=== PATIENT | female | born 1980 | race Caucasian/White ===

== ENCOUNTER 2017-02-07 10:10 | Day surgery (SDC) | payer MEDICARE, OTHER ==
[2017-02-05 14:58] VITALS: BMI 34.7
[~2017-02-07 10:10] MED LIST: LACTATED RINGERS 1,000 ML IV SCH
[2017-02-07 10:58] VITALS: TEMP 98.3
[2017-02-07] MEDS ORDERED: LIDOCAINE 1% 20 ML VIAL (10MG/ML) FOR IV START INTRADERMA ONE (11:07)
[2017-02-07] MEDS ORDERED: LIDOCAINE 1% INJ 10MG/ML (20 ML MDV) ONE (11:19)
[2017-02-07] MEDS ORDERED: PROPOFOL 10 MG/ML 20 ML VIAL IV ONE (11:19)
--- NOTE | 2017-02-07 11:32 | P.PCN ---
Date of Procedure: 02/07/17 Procedure(s) Performed: BRIEF HISTORY: Patient is a 36-year-old, pleasant, white female, scheduled for an upper endoscopy as a part of evaluation of persistent nausea vomiting for the last 2 years duration. She was diagnosed with idiopathic gastroparesis about 20 years ago and since then has been maintained on Prilosec 20 mg twice daily and was doing reasonably well. However in the last 2 years she is been having progressively worsening symptoms with epigastric discomfort, early satiety and intermittent nausea vomiting. She is hence scheduled for an upper endoscopy to evaluate. PROCEDURE PERFORMED: Esophagogastroduodenoscopy and biopsy. PREOPERATIVE DIAGNOSIS: Intermittent nausea and vomiting of 2 years duration. IV sedation per anesthesia. PROCEDURE: After informed consent was obtained, the patient was brought into the endoscopy unit. IV sedation was administered by Anesthesia under continuous monitoring. Initially the Olympus GIF-140 video endoscope was inserted into the mouth. Esophagus intubated without any difficulty. It was gradually advanced into the stomach and duodenum and carefully examined. The bulb and the second part of the duodenum appeared normal. The scope at this time was withdrawn to the stomach, adequately insufflated with air, and upon careful examination, mucosa of the antrum, had mild gastritis and biopsies were done from this area. The body, cardia and the fundus appeared normal. There was small to moderate of retained solid food noted in the stomach suggestive of gastroparesis. The scope was then withdrawn into the esophagus. The GE junction was located at 39 cm from the incisors. There were 2 linear erosions consistent with LA grade B reflux esophagitis. The rest of the esophagus appeared varinder and the patient tolerated the procedure well. IMPRESSION: 1. Retained food in the stomach suggestive of idiopathic gastroparesis. 2. Linear erosions in the esophagus consistent with LA grade B reflux esophagitis. RECOMMENDATIONS: The findings of this examination were discussed with the patient as well as a family. She was advised to continue with omeprazole 20 mg twice daily half hour before breakfast and dinner and add Zantac 150 mg at bedtime. She was advised to be on small frequent meals. If she still remains symptomatic can be offered a prokinetic agent for symptomatic improvement.
[2017-02-07 11:55] VITALS: BP 116/79; PULSE 78; RESP 16
== END 2017-02-07 12:32 | disposition home or self-care (01) ==
LOC: ORWHC2ENDO 10:10
PROVIDERS: ATTEND Internal Medicine Gastroenterology
DX: K29.50 Unspecified chronic gastritis without bleeding (principal); K21.0 Gastro-esophageal reflux disease with esophagitis; K22.10 Ulcer of esophagus without bleeding; F17.200 Nicotine dependence, unspecified, uncomplicated; F41.9 Anxiety disorder, unspecified; Z79.899 Other long term (current) drug therapy
CPT/HCPCS: 81025; 88305; 88342; 43239; J2001; J2704

== ENCOUNTER → 2018-04-08 | Outpatient (CLI) | payer MEDICARE, OTHER ==
[2018-04-08 17:39] LABS: Vitamin D 25 Hydroxy 13.1 ng/mL (30.0-100.0)
[2018-04-08 17:51] LABS: ALT <8 U/L (8-44); AST 11 U/L (13-35); Albumin/Globulin Ratio 2.18 (1.20-2.10); Alkaline Phosphatase 64 U/L (41-126); Calcium 8.9 mg/dL (8.7-10.3); Carbon Dioxide 20.9 mmol/L (21.6-31.8); Chloride 105 mmol/L (96-109); Globulin 1.7 g/dL (2.1-3.7); Glucose 145 mg/dL (70-110); Potassium 3.8 mmol/L (3.5-5.5); Sodium 137 mmol/L (135-145); Total Bilirubin 0.2 mg/dL (0.3-1.2); Total Protein 5.4 g/dL (6.2-8.2)
[2018-04-08 20:05] LABS: Hemoglobin A1C 5.3 % (4.0-6.0)
== END ==
LOC: LABWHC1 07:12
PROVIDERS: ATTEND Internal Medicine Interventional Cardiology
DX: O99.419 Diseases of the circulatory system complicating pregnancy, unspecified trimester (principal); R00.0 Tachycardia, unspecified; Z33.1 Pregnant state, incidental; Z3A.00 Weeks of gestation of pregnancy not specified
CPT/HCPCS: 36415; 80053; 82306; 82607; 82950; 83036; 84443

== ENCOUNTER → 2018-04-15 | Outpatient (CLI) | payer MEDICARE, OTHER ==
[2018-04-15 12:06] LABS: Glucose 3 Hour, Gest 159 mg/dL
== END | disposition home or self-care (01) ==
LOC: LABWHC1 07:28
PROVIDERS: ATTEND Obstetrics & Gynecology
DX: O99.810 Abnormal glucose complicating pregnancy (principal); Z3A.00 Weeks of gestation of pregnancy not specified
CPT/HCPCS: 36415; 82951; 82952

== ENCOUNTER 2019-11-14 01:32 | Emergency (ER) | payer MEDICARE, OTHER ==
[2019-11-14 01:38] VITALS: BP 157/83; PULSE 103; RESP 20; TEMP 98.2
--- NOTE | 2019-11-14 01:51 | ED ---
General Adult HPI - General Chief complaint: Extremity Injury, Lower Stated complaint: Ankle injury Time Seen by Provider: 11/14/19 01:45 Source: patient, family Mode of arrival: ambulatory Limitations: no limitations - History of Present Illness Initial comments: Dictation was produced using [employer] dictation software. please excuse any grammatical, word or spelling errors. This patient was cared for during a federal and state declared state of emergency secondary to Covid 19 Chief Complaint: 39-year-old female presents with ankle pain. History of Present Illness: Patient is 39-year-old female patient states she tripped on her flip-flop and fell forward. Patient states she inverted her right ankle causing her pain. Patient's friend is an ER nurse and she was encouraged to come to the emergency department. He complains of pain whenever she bears weight. Denies any midfoot tenderness. Denies any numbness and paresthesias. Patient complains of pain over the posterior portion of the lateral malleolus. The ROS documented in this emergency department record has been reviewed and confirmed by me. Those systems with pertinent positive or negative responses have been documented in the HPI. All other systems are other negative and/or noncontributory. PHYSICAL EXAM: General Impression: Alert and oriented x3, not in acute distress HEENT: Normocephalic atraumatic, extra-ocular movements intact, pupils equal and reactive to light bilaterally, mucous membranes moist. Cardiovascular: Heart regular rate and rhythm Chest: Able to complete full sentences, no retractions, no tachypnea Abdomen: abdomen soft, non-tender, non-distended, no organomegaly Musculoskeletal: Pulses present and equal in all extremities, no peripheral edema Motor: no focal deficits noted Neurological: CN II-XII grossly intact, no focal motor or sensory deficits noted Skin: Intact with no visualized rashes Psych: Normal affect and mood Right ankle: Mild swelling to the inferior portion of the lateral malleolus. No midfoot tenderness ED course: 39-year-old feel presents with right ankle pain after inversion injury. Lens upon arrival are within acceptable limits.X-ray shows no acute processes. Clinical presentation consistent with ankle sprain. Patient's weightbearing as tolerated. - Related Data Home Medications Medication Instructions Recorded Confirmed ALPRAZolam [Xanax] 2 mg PO DAILY PRN 09/02/13 02/07/17 Omeprazole [PriLOSEC] 20 mg PO BID 09/02/13 02/07/17 Albuterol Nebulized [Ventolin 2.5 mg INHALATION Q4H PRN 02/05/17 02/07/17 Nebulized] Amitriptyline HCl [Elavil] 100 mg PO HS 02/05/17 02/07/17 Dextroamphetamine/Amphetamine 20 mg PO BID PRN 02/05/17 02/07/17 [Adderall] Ibuprofen [Advil] 400 mg PO Q6HR PRN 02/05/17 02/07/17 Vortioxetine Hydrobromide 20 mg PO DAILY 02/05/17 02/07/17 [Trintellix] Allergies Allergy/AdvReac Type Severity Reaction Status Date / Time No Known Allergies Allergy Verified 11/14/19 01:38 Review of Systems ROS Statement: Those systems with pertinent positive or pertinent negative responses have been documented in the HPI. ROS Other: All systems not noted in ROS Statement are negative. Past Medical History Past Medical History: Fibromyalgia, GERD/Reflux, Rheumatoid Arthritis (RA), Thyroid Disorder Additional Past Medical History / Comment(s): BULGING DISCS, DDD. NARCOLEPSY. HYROID NODULES, GOITER-thyroid nodules, injury to back recently, chronic bronchitis, IBS, gastroparesis, has choking with drinking fluid and vomiting- causes pain, History of Any Multi-Drug Resistant Organisms: None Reported Additional Past Surgical History / Comment(s): COLONOSCOPY/EGD. LAPAROSCOPY, pain clinic spinal injections Past Anesthesia/Blood Transfusion Reactions: Previous Problems w/ Anesthesia, Family History of Problems w/ Anesthesia, Motion Sickness Additional Past Anesthesia/Blood Transfusion Reaction / Comment(s): REQUIRES EXTRA ANESTHESIA; MOTHER DOES ALSO. Past Psychological History: Anxiety, Panic Disorder Smoking Status: Current every day smoker Past Alcohol Use History: Occasional Past Drug Use History: None Reported - Past Family History Mother Family Medical History: Pulmonary Embolus General Exam Limitations: no limitations Course Vital Signs 11/14/19 01:34 Temperature 98.2 F Pulse Rate 103 H Respiratory 20 Rate Blood Pressure 157/83 O2 Sat by Pulse 98 Oximetry Disposition Clinical Impression: Ankle sprain Disposition: HOME SELF-CARE Condition: Good Instructions (If sedation given, give patient instructions): Ankle Sprain (ED) Is patient prescribed a controlled substance at d/c from ED?: No Referrals: SouLino hoyos DO [Primary Care Provider] - 1-2 days Time of Disposition: 02:10
--- NOTE | 2019-11-14 02:02 | XR ---
EXAMINATION TYPE: XR ankle complete RT DATE OF EXAM: 11/14/2019 COMPARISON: NONE HISTORY: Pain. Twisted ankle. TECHNIQUE: 3 views FINDINGS: Ankle mortise is anatomic. I see no fracture nor dislocation. There is soft tissue swelling over the lateral malleolus. There is an Achilles calcaneal spur. IMPRESSION: Soft tissue swelling. No fracture seen.
== END 2019-11-14 02:24 | disposition home or self-care (01) ==
LOC: EC 01:32
DX: S93.401A Sprain of unspecified ligament of right ankle, initial encounter (principal); M79.7 Fibromyalgia; F41.0 Panic disorder [episodic paroxysmal anxiety]; K21.9 Gastro-esophageal reflux disease without esophagitis; M06.9 Rheumatoid arthritis, unspecified; G47.419 Narcolepsy without cataplexy; K58.9 Irritable bowel syndrome, unspecified; F17.200 Nicotine dependence, unspecified, uncomplicated; Z87.19 Personal history of other diseases of the digestive system; Z79.899 Other long term (current) drug therapy; W01.0XXA Fall on same level from slipping, tripping and stumbling without subsequent striking against object, initial encounter
CPT/HCPCS: 99283

== ENCOUNTER 2023-04-09 19:07 | Inpatient (IN) | payer MEDICARE, OTHER ==
[2023-04-09] MEDS ORDERED: methylPREDNISolone SOD SUCCI 125 MG/2 ML VIAL IV ONE (19:44)
[2023-04-09] MEDS ORDERED: ACETAMINOPHEN TAB 325 MG TAB PO STA (19:44)
[2023-04-09] MEDS ORDERED: IPRATROPIUM-ALBUTEROL 3 ML NEB INHALATION STA ×3 (19:44→22:00)
[2023-04-09] MEDS ORDERED: IBUPROFEN 600 MG TAB PO STA (19:44)
[2023-04-09] MEDS ORDERED: SODIUM CHLORIDE 0.9% 1,000 ML IV ONE (19:47)
--- NOTE | 2023-04-09 21:14 | ED ---
Fever HPI - General Chief Complaint: Fever Stated Complaint: SAMI Time Seen by Provider: 04/09/23 19:24 Source: patient Mode of arrival: ambulatory Limitations: no limitations - History of Present Illness Initial Comments: 43-year-old female presenting with chief complaint of shortness of breath. Patient has been experiencing a cough and fever since yesterday. She was seen at urgent care and was diagnosed with bronchitis and ear infection, she is curr ently on doxycycline. Patient states that she started having the chills this evening and after taking her breathing treatment and codeine cough syrup was continuing to feel short of breath which prompted her to report to ER. She denies any chest pain or tightness. Admits to diarrhea, no nausea or vomiting. - Related Data Home Medications Medication Instructions Recorded Confirmed ALPRAZolam [Xanax] 2 mg PO BID PRN 09/02/13 04/09/23 Omeprazole [PriLOSEC] 20 mg PO BID 09/02/13 04/09/23 Albuterol Nebulized [Ventolin 2.5 mg INHALATION RT-Q4H PRN 02/05/17 04/09/23 Nebulized] Albuterol Inhaler [Ventolin Hfa 2 puff INHALATION RT-Q6H PRN 04/09/23 04/09/23 Inhaler] Doxycycline Hyclate 100 mg PO BID 04/09/23 04/09/23 Promethazine/Dextromethorphan 5 ml PO Q4HR PRN 04/09/23 04/09/23 [Promethazine-Dm 6.25-15 mg/5Ml] Sertraline [Zoloft] 150 mg PO DAILY 04/09/23 04/09/23 predniSONE 50 mg PO DAILY 04/09/23 04/09/23 Allergies Allergy/AdvReac Type Severity Reaction Status Date / Time No Known Allergies Allergy Verified 04/09/23 21:51 Review of Systems ROS Statement: Those systems with pertinent positive or pertinent negative responses have been documented in the HPI. ROS Other: All systems not noted in ROS Statement are negative. Past Medical History Past Medical History: Fibromyalgia, GERD/Reflux, Rheumatoid Arthritis (RA), Thyroid Disorder Additional Past Medical History / Comment(s): BULGING DISCS, DDD. NARCOLEPSY. HYROID NODULES, GOITER-thyroid nodules, injury to back recently, chronic bronchitis, IBS, gastroparesis, has choking with drinking fluid and vomiting- causes pain, History of Any Multi-Drug Resistant Organisms: None Reported Additional Past Surgical History / Comment(s): COLONOSCOPY/EGD. LAPAROSCOPY, pain clinic spinal injections Past Anesthesia/Blood Transfusion Reactions: Previous Problems w/ Anesthesia, Family History of Problems w/ Anesthesia, Motion Sickness Additional Past Anesthesia/Blood Transfusion Reaction / Comment(s): REQUIRES EXTRA ANESTHESIA; MOTHER DOES ALSO. Past Psychological History: Anxiety, Panic Disorder Smoking Status: Current every day smoker Past Alcohol Use History: Occasional Past Drug Use History: None Reported - Past Family History Mother Family Medical History: Pulmonary Embolus General Exam Limitations: no limitations General appearance: alert, in no apparent distress Head exam: Present: atraumatic, normocephalic, normal inspection Eye exam: Present: normal appearance, EOMI ENT exam: Present: normal exam, normal oropharynx, mucous membranes moist, TM's normal bilaterally Neck exam: Present: normal inspection Respiratory exam: Present: wheezes. Absent: rales, rhonchi, stridor Cardiovascular Exam: Present: regular rate, normal rhythm, normal heart sounds. Absent: systolic murmur, diastolic murmur, rubs, gallop, clicks Neurological exam: Present: alert, oriented X3 Psychiatric exam: Present: normal affect, normal mood Skin exam: Present: warm, dry, intact, normal color. Absent: rash Course Vital Signs 04/09/23 04/09/23 04/09/23 19:17 20:36 20:49 Temperature 100.9 F H Pulse Rate 101 H 88 84 Respiratory 22 Rate Blood Pressure 129/69 O2 Sat by Pulse 95 Oximetry 04/09/23 04/09/23 04/09/23 20:56 22:07 22:11 Temperature 98.7 F 99.0 F Pulse Rate 102 H 84 Respiratory 18 Rate Blood Pressure 111/69 O2 Sat by Pulse 94 L Oximetry 04/09/23 04/09/23 22:39 22:40 Temperature Pulse Rate 105 H 100 Respiratory 20 Rate Blood Pressure 143/80 O2 Sat by Pulse 94 L Oximetry Medical Decision Making - Medical Decision Making Was pt. sent in by a medical professional or institution (, PA, MANAGER CANCER, urgent care, hospital, or detention...) When possible be specific @ -No Did you speak to anyone other than the patient for history (EMS, parent, family, police, friend...)? What history was obtained from this source @ -No Did you review nursing and triage notes (agree or disagree)? Why? @ -I reviewed and agree with nursing and triage notes Were old charts reviewed (outside hosp., previous admission, EMS record, old EKG, old radiological studies, urgent care reports/EKG's, detention records)? Report findings @ -No old charts were reviewed Differential Diagnosis (chest pain, altered mental status, abdominal pain women, abdominal pain men, vaginal bleeding, weakness, fever, dyspnea, syncope, headache, dizziness, GI bleed, back pain, seizure, CVA, palpatations, mental health, musculoskeletal)? @ -Differential includes pneumonia, bronchitis, asthma, COPD, pneumothorax, CHF, this is not an all inclusive list EKG interpreted by me (3pts min.). @ -Sinus rhythm ventricular rate 94. CT interval 184. QRS 106. QT 355. QTc 407. X-rays interpreted by me (1pt min.). @ -Chest x-ray shows mild bibasilar atelectasis otherwise no acute abnormality CT interpreted by me (1pt min.). @ -None done U/S interpreted by me (1pt. min.). @ -None done What testing was considered but not performed or refused? (CT, X-rays, U/S, labs)? Why? @ -None What meds were considered but not given or refused? Why? @ -None Did you discuss the management of the patient with other professionals (professionals i.e. , PA, MANAGER CANCER, lab, RT, psych nurse, rn social work, divorce lawyer, teacher, court registry officer, child welfare caseworker)? Give summary @ -my attending spoke with the [facility] hospitalist group provider on-call who accepted admission Was smoking cessation discussed for >3mins.? @ -No Was critical care preformed (if so, how long)? @ -No Were there social determinants of health that impacted care today? How? (Homelessness, low income, unemployed, alcoholism, drug addiction, transportation, low edu. Level, literacy, decrease access to med. care, senior living, rehab)? @ -No Was there de-escalation of care discussed even if they declined (Discuss DNR or withdrawal of care, Hospice)? DNR status @ -No What co-morbidities impacted this encounter? (DM, HTN, Smoking, COPD, CAD, Cancer, CVA, ARF, Chemo, Hep., AIDS, mental health diagnosis, sleep apnea, morbid obesity)? @ -None Was patient admitted / discharged? Hospital course, mention meds given and route, prescriptions, significant lab abnormalities, going to OR and other pertinent info. @ -43-year-old female presenting with chief complaint of fever and shortness of breath. History and physical examination are conducted. Diffuse inspiratory and expiratory wheezes are heard on auscultation. Patient is given Solu-Medrol 125 mg and 3 DuoNeb breathing treatments. She is negative for influenza, RSV, Covid. Chest x-ray is negative for consolidation. Patient was febrile upon arrival, she is given Motrin and Tylenol. On reassessment patient continues to complain of shortness of breath and diffuse wheezes are still heard on auscultation. Patient maintains a saturation of 93% on room air. Given the patient's persistent wheezing she will be admitted for reactive airway disease, we will treat empirically with azithromycin. CBC and CMP are ordered. EKG is ordered and reviewed, no acute findings. Patient is agreeable with this plan. I discussed this case with my attending Dr. Bowser Undiagnosed new problem with uncertain prognosis? @ -No Drug Therapy requiring intensive monitoring for toxicity (Heparin, Nitro, Insulin, Cardizem)? @ -No Were any procedures done? @ -No Diagnosis/symptom? @ -Reactive airway disease Acute, or Chronic, or Acute on Chronic? @ -acute Uncomplicated (without systemic symptoms) or Complicated (systemic symptoms)? @ -complicated Side effects of treatment? @ -No Exacerbation, Progression, or Severe Exacerbation? @ -No Poses a threat to life or bodily function? How? (Chest pain, [place], [place], pneumonia, PE, COPD, DKA, ARF, appy, cholecystitis, CVA, Diverticulitis, Homicidal, Suicid al, threat to staff... and all critical care pts) @ -Yes - Lab Data Result diagrams: 04/09/23 23:48 Lab Results 04/09/23 04/09/23 Range/Units 20:08 22:08 POC Glucose (mg/dL) 135 H (70-110) mg/dL POC Glu Inventory Taker ID Tammy Mccartney Influenza Type A (PCR) Not Detected (Not Detectd) Influenza Type B (PCR) Not Detected (Not Detectd) RSV (PCR) Not Detected (Not Detectd) SARS-CoV-2 (PCR) Not Detected (Not Detectd) Disposition Clinical Impression: Reactive airway disease Disposition: ADMITTED IP TO THIS HOSP Condition: Fair Time of Disposition: 23:38
--- NOTE | 2023-04-09 21:44 | XR ---
EXAMINATION TYPE: XR chest 2V DATE OF EXAM: 04/09/2023 8:13 PM CLINICAL INDICATION:Female, 43 years old with history of fever, cough; [facility] COMPARISON: 08/08/2014 TECHNIQUE: XR chest 2V. Frontal PA and lateral views of the chest. FINDINGS: Exam is limited by patient body habitus. Lines/Tubes: None. Heart/mediastinum: Cardiomediastinal silhouette is well defined. Heart size upper normal. The aorta appears tortuous, a finding usually associated with either atherosclerosis or systemic hypertension. Pulmonary vascularity: Not increased, Lungs/Pleura: There is no evidence of pleural effusion, focal consolidation, or pneumothorax. Mild b ibasilar stranding suggesting subsegmental atelectasis. Musculoskeletal: No acute osseous abnormality demonstrated in the limits of the exam. Mild degenerati ve changes. Other findings: None. IMPRESSION: Mild bibasilar atelectasis, otherwise no acute abnormality.
[2023-04-09 22:09] LABS: Glucose,Whole Blood 135 mg/dL (70-110)
[2023-04-09] MEDS ORDERED: ALPRAZolam 1 MG TAB PO STA (23:07)
[2023-04-09] MEDS ORDERED: IBUPROFEN 400 MG TAB PO PRN (23:45)
[2023-04-09] MEDS ORDERED: NALOXONE 0.4 MG/ML 1 ML VIAL IV PRN (23:45)
[2023-04-09] MEDS: SODIUM CHLORIDE 0.9% 1,000 ML IV SCH (23:47)
[2023-04-09] MEDS ORDERED: diphenhydrAMINE ELIXIR 25 MG/10 ML CUP PO PRN (23:47)
[2023-04-10 00:04] LABS: Basophils % (A) 0 %; Eosinophils % (A) 0 %; HGB 12.4 gm/dL (11.4-16.0); Lymphocytes # (A) 0.8 k/uL (1.0-4.8); Lymphocytes % (A) 10 %; MCH 30.7 pg (25.0-35.0); MCHC 33.6 g/dL (31.0-37.0); MCV 91.4 fL (80.0-100.0); Mean Platelet Volume 7.3; Monocytes # (A) 0.2 k/uL (0-1.0); Monocytes % (A) 2 %; Neutrophils # (A) 7.1 k/uL (1.3-7.7); Neutrophils % (A) 86 %; Platelet Count 273 k/uL (150-450); RBC 4.05 m/uL (3.80-5.40); RDW 13.2 % (11.5-15.5); WBC 8.3 k/uL (3.8-10.6)
[2023-04-10] MEDS ORDERED: AZITHROMYCIN 500 MG in SODIUM CHLORIDE 0.9% 250 ML IVPB STA (00:39)
[2023-04-10 00:56] LABS: ALT 29 U/L (4-34); AST 31 U/L (14-36); African American GFR (CKD) >90 (>60 ml/min/1.73 sqM); Albumin 4.1 g/dL (3.5-5.0); Alkaline Phosphatase 86 U/L (38-126); Anion Gap 15 mmol/L; Blood Urea Nitrogen 8 mg/dL (7-17); Calcium 8.5 mg/dL (8.4-10.2); Carbon Dioxide 18 mmol/L (22-30); Chloride 104 mmol/L (98-107); Glucose 216 mg/dL (74-99); Non-African American GFR(CKD) 87 (>60 ml/min/1.73 sqM); Sodium 137 mmol/L (137-145); Total Bilirubin 0.4 mg/dL (0.2-1.3); Total Protein 6.8 g/dL (6.3-8.2)
--- NOTE | 2023-04-10 01:15 | P.CNPUL ---
History of Present Illness Consult date: 04/10/23 Requesting physician: Kimberly Khalil Reason for consult: dyspnea, cough Chief complaint: Shortness of breath and fever History of present illness: I am seeing this patient in new consultation today 04/10/2023 in the emergency room after she presented with chief complaint of shortness of breath, cough, fever over the last 2 days. Patient is a 43-year-old white female with past medical history significant for chronic bronchitis, chronic ongoing tobacco dependence, GERD, gastroparesis, rheumatoid arthritis, anxiety, among other things. Her primary care provider is Dr. Snow. Patient states that she has "seasonal bronchitis". She smokes approximately one quarter pack per day, down from 1 pack per day previously. She states that she has quit multiple times in the past, but has restarted within the last year. She states that Chantix has worked best in the past. She reportedly tested positive for COVID-19 back in February of this year. Since then, she has had multiple bouts of bronchitis- like symptoms. She's had shortness of breath, dry cough, intermittent fever, wheezing, and chest tightness. She states that she did have a nebulizer at home but did not have any medication for it. She has a when necessary albuterol rescue inhaler which she has been using frequently. She's been treated on 2 separate occasions at urgent care clinic with steroids and antibiotics. States that she initially improves, but worsens after she is tapered off her steroids. Her shortness of breath worsened over the last 2 days, and she came to the emergency room. She still has a dry persistent cough, and her chest is sore with coughing. She was febrile on arrival with a T-max of 100.9F. Chest x-ray did not show any acute infiltrates or evidence of pneumonia. She was negative for influenza, RSV, COVID-19. CBC was unremarkable. No leukocytosis. She is currently sitting up in bed, on room air. SpO2 is 95%. She is in no acute respiratory distress. She's had multiple DuoNeb treatments. She still has an end expiratory wheeze. Vital signs are stable. Review of Systems REVIEW OF SYSTEMS: CONSTITUTIONAL: Denies any recent significant weight loss or weight gain. EYES: Denies change in vision. EARS, NOSE, MOUTH, THROAT: Denies headaches, denies sore throat. CARDIOVASCULAR: Denies radiating chest pain, palpitations or syncopal episodes. RESPIRATORY: See HPI GASTROINTESTINAL: Denies change in appetite, abdominal pain, nausea and vomiting. Admits intermittent diarrhea after starting antibiotics. GENITOURINARY: Denies hematuria, denies infections. MUSKULOSKELETAL: Denies pain, denies swelling. INTEGUMENTARY: Denies rash, denies eczema. NEUROLOGICAL: Denies recent memory loss, no recent seizure activity. PSYCHIATRIC: Denies anxiety, denies depression. HEMATOLOGIC/LYMPHATIC: Denies anemia, denies enlarged lymph node Past Medical History Past Medical History: Fibromyalgia, GERD/Reflux, Rheumatoid Arthritis (RA), Thyroid Disorder Additional Past Medical History / Comment(s): BULGING DISCS, DDD. NARCOLEPSY. HYROID NODULES, GOITER-thyroid nodules, injury to back recently, chronic bronchitis, IBS, gastroparesis, has choking with drinking fluid and vomiting- causes pain, History of Any Multi-Drug Resistant Organisms: None Reported Additional Past Surgical History / Comment(s): COLONOSCOPY/EGD. LAPAROSCOPY, pain clinic spinal injections Past Anesthesia/Blood Transfusion Reactions: Previous Problems w/ Anesthesia, Family History of Problems w/ Anesthesia, Motion Sickness Additional Past Anesthesia/Blood Transfusion Reaction / Comment(s): REQUIRES EXTRA ANESTHESIA; MOTHER DOES ALSO. Past Psychological History: Anxiety, Panic Disorder Smoking Status: Current every day smoker Past Alcohol Use History: Occasional Past Drug Use History: None Reported - Past Family History Mother Family Medical History: Pulmonary Embolus Medications and Allergies Home Medications Medication Instructions Recorded Confirmed Type ALPRAZolam [Xanax] 2 mg PO BID PRN 09/02/13 04/09/23 History Omeprazole [PriLOSEC] 20 mg PO BID 09/02/13 04/09/23 History Albuterol Nebulized [Ventolin 2.5 mg INHALATION RT-Q4H PRN 02/05/17 04/09/23 History Nebulized] Albuterol Inhaler [Ventolin Hfa 2 puff INHALATION RT-Q6H PRN 04/09/23 04/09/23 History Inhaler] Doxycycline Hyclate 100 mg PO BID 04/09/23 04/09/23 History Promethazine/Dextromethorphan 5 ml PO Q4HR PRN 04/09/23 04/09/23 History [Promethazine-Dm 6.25-15 mg/5Ml] Sertraline [Zoloft] 150 mg PO DAILY 04/09/23 04/09/23 History predniSONE 50 mg PO DAILY 04/09/23 04/09/23 History Allergies Allergy/AdvReac Type Severity Reaction Status Date / Time No Known Allergies Allergy Verified 04/09/23 21:51 Physical Exam Vitals: Vital Signs Temp Pulse Resp BP Pulse Ox 04/09/23 22:40 100 04/09/23 22:39 105 H 20 143/80 94 L 04/09/23 22:11 99.0 F 04/09/23 22:07 84 04/09/23 20:56 98.7 F 102 H 18 111/69 94 L 04/09/23 20:49 84 04/09/23 20:36 88 04/09/23 19:17 100.9 F H 101 H 22 129/69 95 Intake and Output 04/09/23 04/09/23 04/10/23 14:59 22:59 06:59 Other: Weight 95.254 kg GENERAL EXAM: Alert, 43-year-old white female, comfortable in no apparent distress. HEAD: Normocephalic and atraumatic EYES: Normal reaction of pupils, equal size. NOSE: Clear with pink turbinates. THROAT: No erythema or exudates. NECK: No masses, no JVD. CHEST: No chest wall deformity. LUNGS: Equal air entry with end expiratory wheezes heard throughout. She has a persistent dry cough. On room air. No conversational dyspnea or accessory muscle use.. CVS: S1 and S2 normal with no audible murmur, regular rhythm. No extra heart sounds ABDOMEN: No hepatosplenomegaly, active bowel sounds, no guarding or rigidity. SPINE: No scoliosis or deformity SKIN: No rashes CENTRAL NERVOUS SYSTEM: No focal deficits, tone is normal in all 4 extremities. EXTREMITIES: There is no peripheral edema, clubbing, or cyanosis. Peripheral pulses are intact. Results - Laboratory Findings CBC and BMP: 04/09/23 23:48 Abnormal lab findings: Abnormal Labs 04/09/23 04/09/23 22:08 23:48 Lymphocytes # 0.8 L POC Glucose (mg/dL) 135 H - Diagnostic Findings Chest x-ray: image reviewed Assessment and Plan Assessment: Suspect acute bronchitis, chest x-ray shows no acute infiltrates or evidence of pneumonia. Negative for influenza, RSV, COVID-19. History of chronic bronchitis Chronic ongoing tobacco dependence History of GERD History of gastroparesis Gen. anxiety disorder Fibromyalgia Obesity, with a BMI of 38.4 kg/m Plan: Patient's medications, labs, chest x-ray reviewed On room air Continue DuoNeb's, add Robitussin-DM, and when necessary Tylenol Patient was empirically placed on antibiotics in the ER Smoking cessation encouraged. Nicotine replacement offered. Anticipate hospital discharge in the next 24-48 hours We will continue to follow I have personally seen and examined the patient, performed the documentation and the assessment and plan as written. Number of minutes spent on the visit:20 Time with Patient: Greater than 30
[2023-04-10] MEDS: guaiFENesin-DM 100-10MG/5ML 10 ML CUP PO PRN ×2 (01:56→11:22)
[2023-04-10 03:51] LABS: Potassium 3.3 mmol/L (3.5-5.1)
[2023-04-10] MEDS: IPRATROPIUM-ALBUTEROL 3 ML NEB INHALATION PRN (04:43)
[2023-04-10] MEDS: methylPREDNISolone SOD SUCCI 125 MG/2 ML VIAL IV SCH ×3 (06:33→20:28)
[2023-04-10] MEDS ORDERED: PANTOPRAZOLE 40 MG TABLET PO SCH (07:30)
[2023-04-10] MEDS: IPRATROPIUM-ALBUTEROL 3 ML NEB INHALATION SCH ×4 (08:24→19:43)
[2023-04-10] MEDS: PANTOPRAZOLE 40 MG TABLET PO SCH ×2 (09:03→17:49)
[2023-04-10] MEDS: SERTRALINE 50 MG TAB PO SCH (09:06)
[2023-04-10] MEDS: ACETAMINOPHEN TAB 325 MG TAB PO PRN (11:22)
[2023-04-10] MEDS: BUDESONIDE 1 MG/2 ML NEBU INHALATION SCH ×2 (11:26→19:43)
[2023-04-10] MEDS ORDERED: POTASSIUM CHLORIDE ER 20 MEQ TAB.ER PO STA (12:39)
--- NOTE | 2023-04-10 12:49 | P.HPIM ---
History of Present Illness Patient given with comments of shortness of breath does smoke half a pack of cigarettes a day trying to quit smoking. Patient does have history of seasonal bronchitis and seasonal asthma. Patient has been coughing unable to bring up anything chest x-ray did not show any pneumonia, patient is negative for COVID- 19, RSV and influenza. Patient does have leukocytosis. Patient was given steroids and antibiotic in urgent care clinic. Patient was having a dry cough with some chest tightness and wheezing. REVIEW OF SYSTEMS: CONSTITUTIONAL: No fever, no malaise, no fatigue. HEENT: No recent visual problems or hearing problems. Denied any sore throat. CARDIOVASCULAR: No chest pain, orthopnea, PND, no palpitations, no syncope. PULMONARY: no hemoptysis. GASTROINTESTINAL: No diarrhea, no nausea, no vomiting, no abdominal pain. NEUROLOGICAL: No headaches, no weakness, no numbness. HEMATOLOGICAL: Denies any bleeding or petechiae. GENITOURINARY: Denies any burning micturition, frequency, or urgency. MUSCULOSKELETAL/RHEUMATOLOGICAL: Denies any joint pain, swelling, or any muscle pain. ENDOCRINE: Denies any polyuria or polydipsia. The rest of the 14-point review of systems is negative. PHYSICAL EXAMINATION: GENERAL: The patient is alert and oriented x3, not in any acute distress. Obese with a BMI of 38.4 HEENT: Pupils are round and equally reacting to light. EOMI. No scleral icterus. No conjunctival pallor. Normocephalic, atraumatic. No pharyngeal erythema. No thyromegaly. CARDIOVASCULAR: S1 and S2 present. No murmurs, rubs, or gallops. PULMONARY: Expiratory wheezing on exam with some rhonchi ABDOMEN: Soft, nontender, nondistended, normoactive bowel sounds. No palpable organomegaly. MUSCULOSKELETAL: No joint swelling or deformity. EXTREMITIES: No cyanosis, clubbing, or pedal edema. NEUROLOGICAL: Gross neurological examination did not reveal any focal deficits. SKIN: No rashes. Assessment and plan -Bronchitis, possible COPD exacerbation: Patient is an antibody for pneumonia but no clear evidence of pneumonia patient has but atelectasis bilaterally will obtain pro-calcitonin level for now we'll continue with antibiotics continue systemic steroids. Next -Nicotine use: Counseling was provided patient did not smoke for last 3 days had multiple attempts of quitting smoking cessation Gastroesophageal reflux disease respiratory reflux disease --anxiety disorder -Fever secondary to bronchitis DVT prophylaxis: Early ablation Past Medical History Past Medical History: Fibromyalgia, GERD/Reflux, Rheumatoid Arthritis (RA), Thyroid Disorder Additional Past Medical History / Comment(s): BULGING DISCS, DDD. NARCOLEPSY. HYROID NODULES, GOITER-thyroid nodules, injury to back recently, chronic bronchitis, IBS, gastroparesis, has choking with drinking fluid and vomiting- causes pain, History of Any Multi-Drug Resistant Organisms: None Reported Additional Past Surgical History / Comment(s): COLONOSCOPY/EGD. LAPAROSCOPY, pain clinic spinal injections Past Anesthesia/Blood Transfusion Reactions: Previous Problems w/ Anesthesia, Family History of Problems w/ Anesthesia, Motion Sickness Additional Past Anesthesia/Blood Transfusion Reaction / Comment(s): REQUIRES EXTRA ANESTHESIA; MOTHER DOES ALSO. Past Psychological History: Anxiety, Panic Disorder Smoking Status: Current every day smoker Past Alcohol Use History: Occasional Past Drug Use History: None Reported - Past Family History Mother Family Medical History: Pulmonary Embolus Medications and Allergies Home Medications Medication Instructions Recorded Confirmed Type ALPRAZolam [Xanax] 2 mg PO BID PRN 09/02/13 04/09/23 History Omeprazole [PriLOSEC] 20 mg PO BID 09/02/13 04/09/23 History Albuterol Nebulized [Ventolin 2.5 mg INHALATION RT-Q4H PRN 02/05/17 04/09/23 History Nebulized] Albuterol Inhaler [Ventolin Hfa 2 puff INHALATION RT-Q6H PRN 04/09/23 04/09/23 History Inhaler] Doxycycline Hyclate 100 mg PO BID 04/09/23 04/09/23 History Promethazine/Dextromethorphan 5 ml PO Q4HR PRN 04/09/23 04/09/23 History [Promethazine-Dm 6.25-15 mg/5Ml] Sertraline [Zoloft] 150 mg PO DAILY 04/09/23 04/09/23 History predniSONE 50 mg PO DAILY 04/09/23 04/09/23 History Allergies Allergy/AdvReac Type Severity Reaction Status Date / Time No Known Allergies Allergy Verified 04/09/23 21:51 Physical Exam Vitals: Vital Signs Temp Pulse Resp BP Pulse Ox FiO2 04/10/23 11:43 94 04/10/23 11:28 94 04/10/23 11:26 95 18 134/76 95 04/10/23 09:00 98.0 F 71 18 134/76 98 04/10/23 08:27 95 2 04/10/23 05:30 98 22 122/85 95 04/10/23 04:56 94 04/10/23 04:45 80 04/10/23 03:21 20 04/10/23 01:10 98.4 F 104 H 22 117/68 98 04/09/23 22:40 100 04/09/23 22:39 105 H 20 143/80 94 L 04/09/23 22:11 99.0 F 04/09/23 22:07 84 04/09/23 20:56 98.7 F 102 H 18 111/69 94 L 04/09/23 20:49 84 04/09/23 20:36 88 04/09/23 19:17 100.9 F H 101 H 22 129/69 95 Intake and Output 04/09/23 04/10/23 04/10/23 22:59 06:59 14:59 Other: Weight 95.254 kg Results CBC & Chem 7: 04/09/23 23:48 04/09/23 23:48 Labs: Abnormal Lab Results - Last 24 Hours (Table) 04/09/23 04/09/23 04/09/23 Range/Units 22:08 23:48 23:48 Lymphocytes # 0.8 L (1.0-4.8) k/uL Potassium 3.3 L (3.5-5.1) mmol/L Carbon Dioxide 18 L (22-30) mmol/L Glucose 216 H (74-99) mg/dL POC Glucose (mg/dL) 135 H (70-110) mg/dL
[2023-04-10] MEDS: SODIUM CHLORIDE 0.9% 1,000 ML IV SCH (13:12)
[2023-04-10] MEDS: ALPRAZolam 1 MG TAB PO PRN (13:18)
[2023-04-10] MEDS: FORMOTEROL FUMARATE 20 MCG/2 ML NEBU INHALATION SCH (19:43)
[2023-04-11] MEDS: methylPREDNISolone SOD SUCCI 125 MG/2 ML VIAL IV SCH ×5 (00:22→23:42)
[2023-04-11] MEDS: ALPRAZolam 1 MG TAB PO PRN ×3 (01:31→23:42)
[2023-04-11] MEDS: IPRATROPIUM-ALBUTEROL 3 ML NEB INHALATION PRN (02:08)
[2023-04-11] MEDS: PANTOPRAZOLE 40 MG TABLET PO SCH ×2 (06:36→17:36)
[2023-04-11] MEDS: SODIUM CHLORIDE 0.9% 1,000 ML IV SCH ×2 (06:36→19:13)
[2023-04-11] MEDS: FORMOTEROL FUMARATE 20 MCG/2 ML NEBU INHALATION SCH ×2 (08:09→19:57)
[2023-04-11] MEDS: BUDESONIDE 1 MG/2 ML NEBU INHALATION SCH ×2 (08:09→19:57)
[2023-04-11] MEDS: IPRATROPIUM-ALBUTEROL 3 ML NEB INHALATION SCH ×4 (08:09→19:57)
[2023-04-11] MEDS ORDERED: FAMOTIDINE 20 MG TAB PO SCH (09:00)
[2023-04-11 09:05] LABS: BUN/Creat Ratio 13.12 Ratio (12.00-20.00); Blood Urea Nitrogen 10.5 mg/dL (9.0-27.0); Calcium 8.8 mg/dL (8.7-10.3); Chloride 108 mmol/L (96-109); Glucose 168 mg/dL (70-110); Potassium 4.4 mmol/L (3.5-5.5); Sodium 140 mmol/L (135-145)
[2023-04-11] MEDS: SERTRALINE 50 MG TAB PO SCH (09:35)
[2023-04-11] MEDS: ACETAMINOPHEN TAB 325 MG TAB PO PRN (12:56)
--- NOTE | 2023-04-11 12:56 | P.PN ---
Subjective Progress Note Date: 04/11/23 I am seeing this patient in new consultation today 04/10/2023 in the emergency room after she presented with chief complaint of shortness of breath, cough, fever over the last 2 days. Patient is a 43-year-old white female with past medical history significant for chronic bronchitis, chronic ongoing tobacco dependence, GERD, gastroparesis, rheumatoid arthritis, anxiety, among other things. Her primary care provider is Dr. Snow. Patient states that she has "seasonal bronchitis". She smokes approximately one quarter pack per day, down from 1 pack per day previously. She states that she has quit multiple times in the past, but has restarted within the last year. She states that Chantix has worked best in the past. She reportedly tested positive for COVID-19 back in February of this year. Since then, she has had multiple bouts of bronchitis- like symptoms. She's had shortness of breath, dry cough, intermittent fever, wheezing, and chest tightness. She states that she did have a nebulizer at home but did not have any medication for it. She has a when necessary albuterol rescue inhaler which she has been using frequently. She's been treated on 2 separate occasions at urgent care clinic with steroids and antibiotics. States that she initially improves, but worsens after she is tapered off her steroids. Her shortness of breath worsened over the last 2 days, and she came to the em ergency room. She still has a dry persistent cough, and her chest is sore with coughing. She was febrile on arrival with a T-max of 100.9F. Chest x-ray did not show any acute infiltrates or evidence of pneumonia. She was negative for influenza, RSV, COVID-19. CBC was unremarkable. No leukocytosis. She is currently sitting up in bed, on room air. SpO2 is 95%. She is in no acute respiratory distress. She's had multiple DuoNeb treatments. She still has an end expiratory wheeze. Vital signs are stable. The patient is seen today 04/11/2023 follow-up on the regular medical floor. She is awake and alert in no acute distress. She continues with a hoarse voice, dry nonproductive cough. Still somewhat bronchospastic and wheezing but better today compared to yesterday. Maintaining O2 saturations in the 90s on room air. Pro calcitonin was 0.07. Sodium 140. Potassium 4.4. Bicarb 21. BUN 11. Creatinine 0.8. Glucose 168. He is continued on Pulmicort and Perforomist, DuoNeb inhalations, Solu-Medrol. She is still having issues with acid reflux despite being on Protonix 40 mg twice a day. Objective - Vital Signs Vital signs: Vital Signs Temp 98.6 F 04/11/23 07:00 Pulse 92 04/11/23 12:07 Resp 16 04/11/23 07:00 BP 127/78 04/11/23 07:00 Pulse Ox 91 L 04/11/23 08:09 FiO2 21 04/11/23 08:09 Intake & Output 04/10/23 04/11/23 04/11/23 18:59 06:59 18:59 Intake Total 222 480 Balance 222 480 Intake: Oral 222 480 Other: # Voids 1 - Exam GENERAL EXAM: Alert, 43-year-old female, resting in bed, on room air, in no ap parent distress. HEAD: Normocephalic and atraumatic EYES: Normal reaction of pupils, equal size. NOSE: Clear with pink turbinates. THROAT: No erythema or exudates. NECK: No masses, no JVD. CHEST: No chest wall deformity. LUNGS: Equal air entry with end expiratory wheezes heard throughout. She has a persistent dry cough. CVS: S1 and S2 normal with no audible murmur, regular rhythm. No extra heart sounds ABDOMEN: No hepatosplenomegaly, active bowel sounds, no guarding or rigidity. SPINE: No scoliosis or deformity SKIN: No rashes CENTRAL NERVOUS SYSTEM: No focal deficits, tone is normal in all 4 extremities. EXTREMITIES: There is no peripheral edema, clubbing, or cyanosis. Peripheral pulses are intact. - Labs CBC & Chem 7: 04/09/23 23:48 04/11/23 04:59 Labs: Abnormal Lab Results - Last 24 Hours (Table) 04/11/23 Range/Units 04:59 Carbon Dioxide 21.0 L (21.6-31.8) mmol/L Glucose 168 H (70-110) mg/dL Assessment and Plan Assessment: Suspect acute bronchitis, chest x-ray shows no acute infiltrates or evidence of pneumonia. Negative for influenza, RSV, COVID-19. Pro-calcitonin negative. History of chronic bronchitis Chronic ongoing tobacco dependence History of GERD History of gastroparesis Gen. anxiety disorder Fibromyalgia Obesity, with a BMI of 38.4 kg/m Plan: The patient was seen and evaluated Stable and on room air Procalcitonin negative Improved but not quite back to her baseline Continue the current treatment plan Increase her activity as tolerated We will continue to follow I have personally seen and examined the patient, performed the documentation and the assessment and plan as written. Number of minutes spent on the visit: 10.
[2023-04-11] MEDS: MAG HYDROX/AL HYDROX/SIMETH 30 ML CUP PO SCH ×3 (12:58→21:02)
[2023-04-11] MEDS ORDERED: guaiFENesin SYRUP 100MG/5ML 200 MG/10 ML CUP PO PRN (13:57)
[2023-04-11] MEDS: BENZONATATE 100 MG CAP PO SCH ×2 (17:38→21:02)
--- NOTE | 2023-04-11 23:35 | P.PN ---
Subjective Progress Note Date: 04/11/23 Patient given with comments of shortness of breath does smoke half a pack of cigarettes a day trying to quit smoking. Patient does have history of seasonal bronchitis and seasonal asthma. Patient has been coughing unable to bring up anything chest x-ray did not show any pneumonia, patient is negative for COVID- 19, RSV and influenza. Patient does have leukocytosis. Patient was given steroids and antibiotic in urgent care clinic. Patient was having a dry cough with some chest tightness and wheezing 04/11/2023 Patient evaluated today resting in bed Continues with significant shortness of breath bronchospastic cough. Patient remains on high dose solumedrol IV. Remains on 2L of oxygen. Procalcitonin level 0.07 no need for antibiotics at this time. Patient states at this time her acid reflux is under control she is on regimen of protonix pepcid and maalox was added. Needs to follow up with GI who is not on staff until Friday. Review of Systems Constitutional: Denied any fatigue denied any fever. Cardio vascular: denied any chest pain, palpitations Gastrointestinal: denied any nausea, vomiting, diarrhea Pulmonary: Denied any shortness of breath cough Neurologic denied any new focal deficits All inpatient medications were reviewed and appropriate changes in these medications as dictated in the interval history and assessment and plan. PHYSICAL EXAMINATION: GENERAL: The patient is alert and oriented x3, not in any acute distress. Well developed, well nourished. HEENT: Pupils are round and equally reacting to light. EOMI. No scleral icterus. No conjunctival pallor. Normocephalic, atraumatic. No pharyngeal erythema. No thyromegaly. CARDIOVASCULAR: S1 and S2 present. No murmurs, rubs, or gallops. PULMONARY: Faint scattered wheezing ABDOMEN: Soft, nontender, nondistended, normoactive bowel sounds. No palpable organomegaly. MUSCULOSKELETAL: No joint swelling or deformity. EXTREMITIES: No cyanosis, clubbing, or pedal edema. NEUROLOGICAL: Gross neurological examination did not reveal any focal deficits. SKIN: No rashes. Assessment and plan -Bronchitis, possible COPD exacerbation: Procalcitonin level WNL no need for antibiotic therapy at this time. Patient continues on IV steroids and inhaled steroids, bronchodilators. -Nicotine use: Counseling was provided patient did not smoke for last 3 days had multiple attempts of quitting smoking cessation -Gastroesophageal reflux disease Continues on combination of protonix, pepcid and maalox and recommend follow up with GI does not need to be during this hospital stay. -Hx of narcolepsy -Hx of gastroparesis -anxiety disorder -Obesity -Fever secondary to bronchitis DVT prophylaxis: Early ablation The impression and plan of care has been dictated by Shivani Duarte, Nurse Practitioner as directed. Dr. Sai MD I have performed a history and physical examination and medical decision making of this patient, discussed the same with the dictator, and agree with the dictators assessment and plan as written, documented as a scribe. Based on total visit time, I have performed more than 50% of this visit. Objective - Vital Signs Vital signs: Vital Signs Temp 98.6 F 04/11/23 07:00 Pulse 92 04/11/23 12:07 Resp 16 04/11/23 07:00 BP 127/78 04/11/23 07:00 Pulse Ox 91 L 04/11/23 08:09 FiO2 21 04/11/23 08:09 Intake & Output 04/10/23 04/11/23 04/11/23 18:59 06:59 18:59 Intake Total 222 480 Balance 222 480 Intake: Oral 222 480 Other: # Voids 1 - Labs CBC & Chem 7: 04/09/23 23:48 04/11/23 04:59 Labs: Abnormal Lab Results - Last 24 Hours (Table) 04/11/23 Range/Units 04:59 Carbon Dioxide 21.0 L (21.6-31.8) mmol/L Glucose 168 H (70-110) mg/dL Assessment and Plan Time with Patient: Less than 30
[2023-04-12] MEDS: methylPREDNISolone SOD SUCCI 125 MG/2 ML VIAL IV SCH ×3 (06:03→17:47)
[2023-04-12] MEDS: SODIUM CHLORIDE 0.9% 1,000 ML IV SCH (06:03)
[2023-04-12] MEDS: PANTOPRAZOLE 40 MG TABLET PO SCH ×2 (06:03→16:34)
[2023-04-12] MEDS: IPRATROPIUM-ALBUTEROL 3 ML NEB INHALATION SCH ×4 (07:44→18:09)
[2023-04-12] MEDS: BUDESONIDE 1 MG/2 ML NEBU INHALATION SCH ×2 (07:45→18:13)
[2023-04-12] MEDS: FORMOTEROL FUMARATE 20 MCG/2 ML NEBU INHALATION SCH ×2 (07:45→18:13)
[2023-04-12] MEDS: SERTRALINE 50 MG TAB PO SCH (08:27)
[2023-04-12] MEDS: AZITHROMYCIN 500 MG TAB PO SCH (08:27)
[2023-04-12] MEDS: MAG HYDROX/AL HYDROX/SIMETH 30 ML CUP PO SCH ×4 (08:27→21:34)
[2023-04-12] MEDS: BENZONATATE 100 MG CAP PO SCH ×3 (08:27→21:34)
[2023-04-12] MEDS: ALPRAZolam 1 MG TAB PO PRN (08:32)
--- NOTE | 2023-04-12 11:34 | P.PN ---
Subjective Progress Note Date: 04/12/23 I am seeing this patient in new consultation today 04/10/2023 in the emergency room after she presented with chief complaint of shortness of breath, cough, fever over the last 2 days. Patient is a 43-year-old white female with past medical history significant for chronic bronchitis, chronic ongoing tobacco dependence, GERD, gastroparesis, rheumatoid arthritis, anxiety, among other things. Her primary care provider is Dr. Snow. Patient states that she has "seasonal bronchitis". She smokes approximately one quarter pack per day, down from 1 pack per day previously. She states that she has quit multiple times in the past, but has restarted within the last year. She states that Chantix has worked best in the past. She reportedly tested positive for COVID-19 back in February of this year. Since then, she has had multiple bouts of bronchitis- like symptoms. She's had shortness of breath, dry cough, intermittent fever, wheezing, and chest tightness. She states that she did have a nebulizer at home but did not have any medication for it. She has a when necessary albuterol rescue inhaler which she has been using frequently. She's been treated on 2 separate occasions at urgent care clinic with steroids and antibiotics. States that she initially improves, but worsens after she is tapered off her steroids. Her shortness of breath worsened over the last 2 days, and she came to the em ergency room. She still has a dry persistent cough, and her chest is sore with coughing. She was febrile on arrival with a T-max of 100.9F. Chest x-ray did not show any acute infiltrates or evidence of pneumonia. She was negative for influenza, RSV, COVID-19. CBC was unremarkable. No leukocytosis. She is currently sitting up in bed, on room air. SpO2 is 95%. She is in no acute respiratory distress. She's had multiple DuoNeb treatments. She still has an end expiratory wheeze. Vital signs are stable. The patient is seen today 04/11/2023 follow-up on the regular medical floor. She is awake and alert in no acute distress. She continues with a hoarse voice, dry nonproductive cough. Still somewhat bronchospastic and wheezing but better today compared to yesterday. Maintaining O2 saturations in the 90s on room air. Pro calcitonin was 0.07. Sodium 140. Potassium 4.4. Bicarb 21. BUN 11. Creatinine 0.8. Glucose 168. He is continued on Pulmicort and Perforomist, DuoNeb inhalations, Solu-Medrol. She is still having issues with acid reflux despite being on Protonix 40 mg twice a day. The patient is seen today 04/12/2023 in follow-up on the regular medical floor. She is sitting up in bed. Awake and alert in no acute distress. She continues with a dry productive cough. Sputum culture pending. She is maintaining O2 saturations in the 90s on room air. She's afebrile. Hemodynamically stable. She is continued on DuoNeb inhalations, Pulmicort and Perforomist inhalations, Solu-Medrol. Tessalon Perles and Robitussin for her cough. Remains on Protonix twice daily for her acid reflux. Objective - Vital Signs Vital signs: Vital Signs Temp 98.0 F 04/12/23 08:00 Pulse 90 04/12/23 08:07 Resp 16 04/12/23 08:00 BP 149/88 04/12/23 08:00 Pulse Ox 92 L 04/12/23 08:00 FiO2 21 04/11/23 08:09 Intake & Output 04/11/23 04/12/23 04/12/23 18:59 06:59 18:59 Intake Total 1196 Balance 1196 Intake: Oral 1196 Other: # Voids 3 2 - Exam GENERAL EXAM: Alert, anxious 43-year-old female, on room air, in no apparent distress. HEAD: Normocephalic and atraumatic EYES: Normal reaction of pupils, equal size. NOSE: Clear with pink turbinates. THROAT: No erythema or exudates. NECK: No masses, no JVD. CHEST: No chest wall deformity. LUNGS: Equal air entry with end expiratory wheezes heard throughout. She has a persistent cough. CVS: S1 and S2 normal with no audible murmur, regular rhythm. No extra heart sounds ABDOMEN: No hepatosplenomegaly, active bowel sounds, no guarding or rigidity. SPINE: No scoliosis or deformity SKIN: No rashes CENTRAL NERVOUS SYSTEM: No focal deficits, tone is normal in all 4 extremities. EXTREMITIES: There is no peripheral edema, clubbing, or cyanosis. Peripheral pulses are intact. - Labs CBC & Chem 7: 04/09/23 23:48 04/11/23 04:59 Assessment and Plan Assessment: Suspect acute bronchitis, chest x-ray shows no acute infiltrates or evidence of pneumonia. Negative for influenza, RSV, COVID-19. Pro-calcitonin negative. History of chronic bronchitis Chronic ongoing tobacco dependence History of GERD History of gastroparesis Gen. anxiety disorder Fibromyalgia Obesity, with a BMI of 38.4 kg/m Plan: The patient was seen and evaluated Medications reviewed Continue the current treatment plan Add empiric antibiotics in the form of azithromycin Obtain a sputum sample Increase her activity as tolerated We will continue to follow I have personally seen and examined the patient, performed the documentation and the assessment and plan as written. Number of minutes spent on the visit: 10.
[2023-04-12] MEDS ORDERED: NAPROXEN 250 MG TAB PO PRN (12:36)
[2023-04-12] MEDS: FLUTICASONE 50MCG/SPRAY NASAL 16GM EA NOSTRIL SCH (14:18)
[2023-04-12] MEDS: NYSTATIN 100,000 UNIT/ML SUSP 500,000 UNIT/5 ML CUP PO SCH ×3 (14:19→21:34)
[2023-04-12] MEDS: LORATADINE 10 MG TAB PO SCH (14:19)
--- NOTE | 2023-04-12 15:16 | P.PN ---
Subjective Progress Note Date: 04/12/23 Patient given with comments of shortness of breath does smoke half a pack of cigarettes a day trying to quit smoking. Patient does have history of seasonal bronchitis and seasonal asthma. Patient has been coughing unable to bring up anything chest x-ray did not show any pneumonia, patient is negative for COVID- 19, RSV and influenza. Patient does have leukocytosis. Patient was given steroids and antibiotic in urgent care clinic. Patient was having a dry cough with some chest tightness and wheezing 04/11/2023 Patient evaluated today resting in bed Continues with significant shortness of breath bronchospastic cough. Patient remains on high dose solumedrol IV. Remains on 2L of oxygen. Procalcitonin level 0.07 no need for antibiotics at this time. Patient states at this time her acid reflux is under control she is on regimen of protonix pepcid and maalox was added. Needs to follow up with GI who is not on staff until Friday. 04/12/2023 Patient is evaluated today resting in bed. She does continue significant shortness of breath and anxiety. She remains on high dose of IV Solu-Medrol her tongue also has evidence of white coating and we will treat for oral thrush with the addition of nystatin. She is placed on oral azithromycin by pulmonary services. Patient does complain of sinus congestion and fullness and has been started on Claritin and Flonase and will give naproxen for the headache. She continues also on a regimen of Protonix Pepcid and Maalox is not reporting any worsening reflux symptoms. She has been weaned to room air. Review of Systems Constitutional: Denied any fatigue denied any fever. Cardio vascular: denied any chest pain, palpitations Gastrointestinal: denied any nausea, vomiting, diarrhea Pulmonary: Denied any shortness of breath cough Neurologic denied any new focal deficits All inpatient medications were reviewed and appropriate changes in these m edications as dictated in the interval history and assessment and plan. PHYSICAL EXAMINATION: GENERAL: The patient is alert and oriented x3, not in any acute distress. Well developed, well nourished. HEENT: Pupils are round and equally reacting to light. EOMI. No scleral icterus. No conjunctival pallor. Normocephalic, atraumatic. No pharyngeal erythema. No thyromegaly. CARDIOVASCULAR: S1 and S2 present. No murmurs, rubs, or gallops. PULMONARY: Faint scattered wheezing ABDOMEN: Soft, nontender, nondistended, normoactive bowel sounds. No palpable organomegaly. MUSCULOSKELETAL: No joint swelling or deformity. EXTREMITIES: No cyanosis, clubbing, or pedal edema. NEUROLOGICAL: Gross neurological examination did not reveal any focal deficits. SKIN: No rashes. Assessment and plan -Bronchitis, possible COPD exacerbation: Procalcitonin level WNL no need for antibiotic therapy at this time. Patient continues on IV steroids and inhaled steroids, bronchodilators. -Oral thrush started on nystatin swish and swallow -Nicotine use: Counseling was provided -Gastroesophageal reflux disease Continues on combination of protonix, pepcid and maalox and recommend follow up with GI does not need to be during this hospital stay. -Hx of narcolepsy -Hx of gastroparesis -anxiety disorder -Obesity -Fever secondary to bronchitis DVT prophylaxis: Early ablation The impression and plan of care has been dictated by Shivani Duarte Nurse Practitioner as directed. Dr. Sai MD I have performed a history and physical examination and medical decision making of this patient, discussed the same with the dictator, and agree with the dictators assessment and plan as written, documented as a scribe. Based on total visit time, I have performed more than 50% of this visit. Objective - Vital Signs Vital signs: Vital Signs Temp 98.0 F 04/12/23 08:00 Pulse 90 04/12/23 15:04 Resp 16 04/12/23 08:00 BP 149/88 04/12/23 08:00 Pulse Ox 92 L 04/12/23 08:00 FiO2 21 04/11/23 08:09 Intake & Output 04/11/23 04/12/23 04/12/23 18:59 06:59 18:59 Intake Total 1196 Balance 1196 Intake: Oral 1196 Other: # Voids 3 2 - Labs CBC & Chem 7: 04/09/23 23:48 04/11/23 04:59 Assessment and Plan Time with Patient: Less than 30
[2023-04-12] MEDS: ACETAMINOPHEN TAB 325 MG TAB PO PRN (17:55)
[2023-04-12] MEDS: TEMAZEPAM 7.5 MG CAP PO PRN (21:35)
[2023-04-13] MEDS: methylPREDNISolone SOD SUCCI 125 MG/2 ML VIAL IV SCH ×4 (01:43→17:57)
[2023-04-13] MEDS: PANTOPRAZOLE 40 MG TABLET PO SCH ×2 (06:12→17:03)
[2023-04-13] MEDS: ACETAMINOPHEN TAB 325 MG TAB PO PRN (07:40)
[2023-04-13] MEDS: BENZONATATE 100 MG CAP PO SCH ×3 (07:40→20:48)
[2023-04-13] MEDS: NYSTATIN 100,000 UNIT/ML SUSP 500,000 UNIT/5 ML CUP PO SCH ×4 (07:40→20:48)
[2023-04-13] MEDS: AZITHROMYCIN 500 MG TAB PO SCH (07:40)
[2023-04-13] MEDS: SERTRALINE 50 MG TAB PO SCH (07:41)
[2023-04-13] MEDS: LORATADINE 10 MG TAB PO SCH (07:41)
[2023-04-13] MEDS: FLUTICASONE 50MCG/SPRAY NASAL 16GM EA NOSTRIL SCH (07:42)
[2023-04-13] MEDS: MAG HYDROX/AL HYDROX/SIMETH 30 ML CUP PO SCH ×4 (07:42→20:48)
[2023-04-13] MEDS: IPRATROPIUM-ALBUTEROL 3 ML NEB INHALATION SCH ×4 (08:20→19:36)
[2023-04-13] MEDS: BUDESONIDE 1 MG/2 ML NEBU INHALATION SCH ×2 (08:20→19:36)
[2023-04-13] MEDS: FORMOTEROL FUMARATE 20 MCG/2 ML NEBU INHALATION SCH ×2 (08:21→19:36)
--- NOTE | 2023-04-13 11:05 | P.PN ---
Subjective Progress Note Date: 04/13/23 I am seeing this patient in new consultation today 04/10/2023 in the emergency room after she presented with chief complaint of shortness of breath, cough, fever over the last 2 days. Patient is a 43-year-old white female with past medical history significant for chronic bronchitis, chronic ongoing tobacco dependence, GERD, gastroparesis, rheumatoid arthritis, anxiety, among other things. Her primary care provider is Dr. Snow. Patient states that she has "seasonal bronchitis". She smokes approximately one quarter pack per day, down from 1 pack per day previously. She states that she has quit multiple times in the past, but has restarted within the last year. She states that Chantix has worked best in the past. She reportedly tested positive for COVID-19 back in February of this year. Since then, she has had multiple bouts of bronchitis- like symptoms. She's had shortness of breath, dry cough, intermittent fever, wheezing, and chest tightness. She states that she did have a nebulizer at home but did not have any medication for it. She has a when necessary albuterol rescue inhaler which she has been using frequently. She's been treated on 2 separate occasions at urgent care clinic with steroids and antibiotics. States that she initially improves, but worsens after she is tapered off her steroids. Her shortness of breath worsened over the last 2 days, and she came to the em ergency room. She still has a dry persistent cough, and her chest is sore with coughing. She was febrile on arrival with a T-max of 100.9F. Chest x-ray did not show any acute infiltrates or evidence of pneumonia. She was negative for influenza, RSV, COVID-19. CBC was unremarkable. No leukocytosis. She is currently sitting up in bed, on room air. SpO2 is 95%. She is in no acute respiratory distress. She's had multiple DuoNeb treatments. She still has an end expiratory wheeze. Vital signs are stable. The patient is seen today 04/11/2023 follow-up on the regular medical floor. She is awake and alert in no acute distress. She continues with a hoarse voice, dry nonproductive cough. Still somewhat bronchospastic and wheezing but better today compared to yesterday. Maintaining O2 saturations in the 90s on room air. Pro calcitonin was 0.07. Sodium 140. Potassium 4.4. Bicarb 21. BUN 11. Creatinine 0.8. Glucose 168. He is continued on Pulmicort and Perforomist, DuoNeb inhalations, Solu-Medrol. She is still having issues with acid reflux despite being on Protonix 40 mg twice a day. The patient is seen today 04/12/2023 in follow-up on the regular medical floor. She is sitting up in bed. Awake and alert in no acute distress. She continues with a dry productive cough. Sputum culture pending. She is maintaining O2 saturations in the 90s on room air. She's afebrile. Hemodynamically stable. She is continued on DuoNeb inhalations, Pulmicort and Perforomist inhalations, Solu-Medrol. Tessalon Perles and Robitussin for her cough. Remains on Protonix twice daily for her acid reflux. The patient is seen today 04/13/2023 in follow-up on the regular medical floor. She is resting fairly comfortably in bed. Awake and alert in no acute distress. She did have a temperature 103.1 earlier. Currently 99.0. She is less bronchospastic and wheezy. Continues with a dry nonproductive cough. She is continued on DuoNeb inhalations, Pulmicort and Perforomist inhalations, Solu- Medrol. Tessalon Perles and Robitussin for her cough. Protonix twice daily for her acid reflux. Objective - Vital Signs Vital signs: Vital Signs Temp 99.0 F 04/13/23 10:40 Pulse 96 04/13/23 08:31 Resp 17 04/13/23 08:00 BP 169/83 04/13/23 07:00 Pulse Ox 93 L 04/13/23 07:00 FiO2 21 04/11/23 08:09 Intake & Output 04/12/23 04/13/23 04/13/23 18:59 06:59 18:59 Other: # Voids 6 2 1 - Exam GENERAL EXAM: Alert, pleasant 43-year-old female, resting in bed, on 2 L nasal cannula, in no apparent distress. HEAD: Normocephalic and atraumatic EYES: Normal reaction of pupils, equal size. NOSE: Clear with pink turbinates. THROAT: No erythema or exudates. NECK: No masses, no JVD. CHEST: No chest wall deformity. LUNGS: Equal air entry with end expiratory wheezes heard throughout. Persistent cough. CVS: S1 and S2 normal with no audible murmur, regular rhythm. No extra heart sounds ABDOMEN: No hepatosplenomegaly, active bowel sounds, no guarding or rigidity. SPINE: No scoliosis or deformity SKIN: No rashes CENTRAL NERVOUS SYSTEM: No focal deficits, tone is normal in all 4 extremities. EXTREMITIES: There is no peripheral edema, clubbing, or cyanosis. Peripheral pulses are intact. - Labs CBC & Chem 7: 04/09/23 23:48 04/11/23 04:59 Assessment and Plan Assessment: Suspect acute bronchitis, chest x-ray shows no acute infiltrates or evidence of pneumonia. Negative for influenza, RSV, COVID-19. Pro-calcitonin negative. History of chronic bronchitis Chronic ongoing tobacco dependence History of GERD History of gastroparesis Anxiety disorder Fibromyalgia Obesity, with a BMI of 38.4 kg/m Plan: The patient was seen and evaluated Medications reviewed Continue dilators, steroids Continue empiric antibiotics Increase her activity as tolerated Follow-up chest x-ray in a.m. We will continue to follow I have personally seen and examined the patient, performed the documentation and the assessment and plan as written. Number of minutes spent on the visit: 10.
[2023-04-13] MEDS: ALPRAZolam 1 MG TAB PO PRN (11:52)
[2023-04-13] MEDS: polyethylene glycoL 3350 17 GM POWD.PACK PO SCH (14:52)
--- NOTE | 2023-04-13 15:24 | XR ---
EXAMINATION TYPE: XR chest 2V DATE OF EXAM: 04/13/2023 COMPARISON: 04/09/2023 HISTORY: Pneumonia TECHNIQUE: Frontal and lateral views of the chest are obtained. FINDINGS: There has been interval development of a partially consolidative opacity in the right lung base consistent with a pneumonic infiltrate. The left lung remains clear. There is no pneumothorax or pleural effusion. Heart and pulmonary vasculature are normal. The osseous structures are intact IMPRESSION: Findings consistent with acute cardiopulmonary disease. There has been interval developm ent of a right lower lobe opacity consistent with pneumonia in the proper clinical setting. Short-ter m follow-up to resolution is suggested.
[2023-04-13 16:27] LABS: Appearance,Urine Clear (Clear); Bacteria,Urine Rare /hpf; Bilirubin,Urine Negative (Negative); Blood,Urine Trace (Negative); Color,Urine Colorless; Glucose,Urine (UA) Negative (Negative); Ketones,Urine Negative (Negative); Leukocyte Esterase,Urine Negative (Negative); Mucus,Urine Rare /hpf; Nitrite,Urine Negative (Negative); Protein,Urine Negative (Negative); RBC,Urine 1 /hpf (0-5); Specific Gravity,Urine 1.007 (1.001-1.035); Squamous Epithelial Cell,Urine 1 /hpf (0-4); Urobilinogen,Urine <2.0 mg/dL (<2.0); WBC,Urine <1 /hpf (0-5)
--- NOTE | 2023-04-13 19:23 | P.PN ---
Subjective Progress Note Date: 04/13/23 Patient given with comments of shortness of breath does smoke half a pack of cigarettes a day trying to quit smoking. Patient does have history of seasonal bronchitis and seasonal asthma. Patient has been coughing unable to bring up anything chest x-ray did not show any pneumonia, patient is negative for COVID- 19, RSV and influenza. Patient does have leukocytosis. Patient was given steroids and antibiotic in urgent care clinic. Patient was having a dry cough with some chest tightness and wheezing 04/11/2023 Patient evaluated today resting in bed Continues with significant shortness of breath bronchospastic cough. Patient remains on high dose solumedrol IV. Remains on 2L of oxygen. Procalcitonin level 0.07 no need for antibiotics at this time. Patient states at this time her acid reflux is under control she is on regimen of protonix pepcid and maalox was added. Needs to follow up with GI who is not on staff until Friday. 04/12/2023 Patient is evaluated today resting in bed. She does continue significant shortness of breath and anxiety. She remains on high dose of IV Solu-Medrol her tongue also has evidence of white coating and we will treat for oral thrush with the addition of nystatin. She is placed on oral azithromycin by pulmonary services. Patient does complain of sinus congestion and fullness and has been started on Claritin and Flonase and will give naproxen for the headache. She continues also on a regimen of Protonix Pepcid and Maalox is not reporting any worsening reflux symptoms. She has been weaned to room air. 04/13/2023 Patient evaluated today sitting up in bed with family at bedside. Did report ear fullness which she does have erythema and bulging disc on the left. She continues to have bronchospastic cough with lobo sputum. She has pain when coughing and tearful. Review of Systems Constitutional: Denied any fatigue denied any fever. Cardio vascular: denied any chest pain, palpitations Gastrointestinal: denied any nausea, vomiting, diarrhea Pulmonary: Denied any shortness of breath cough Neurologic denied any new focal deficits All inpatient medications were reviewed and appropriate changes in these medications as dictated in the interval history and assessment and plan. PHYSICAL EXAMINATION: GENERAL: The patient is alert and oriented x3, not in any acute distress. Well developed, well nourished. HEENT: Pupils are round and equally reacting to light. EOMI. No scleral icterus. No conjunctival pallor. Normocephalic, atraumatic. No pharyngeal erythema. No thyromegaly. CARDIOVASCULAR: S1 and S2 present. No murmurs, rubs, or gallops. PULMONARY: Faint scattered wheezing ABDOMEN: Soft, nontender, nondistended, normoactive bowel sounds. No palpable organomegaly. MUSCULOSKELETAL: No joint swelling or deformity. EXTREMITIES: No cyanosis, clubbing, or pedal edema. NEUROLOGICAL: Gross neurological examination did not reveal any focal deficits. SKIN: No rashes. Assessment and plan -Bronchitis, possible COPD exacerbation: Procalcitonin level WNL patient has interval development of fever and will recommend to add IV ceftriaxone with oral azithromycin. Sputum sample is pending. Patient continues on supportive care. Patient continues on IV steroids and inhaled steroids, bronchodilators. -Oral thrush started on nystatin swish and swallow -Nicotine use: Counseling was provided -Gastroesophageal reflux disease Continues on combination of protonix, pepcid and maalox and recommend follow up with GI does not need to be during this hospital stay. -Hx of narcolepsy -Hx of gastroparesis -anxiety disorder -Obesity -Fever secondary to bronchitis DVT prophylaxis: Early ablation The impression and plan of care has been dictated by Shivani Duarte, Nurse Practitioner as directed. Dr. Sai MD I have performed a history and physical examination and medical decision making of this patient, discussed the same with the dictator, and agree with the dic tators assessment and plan as written, documented as a scribe. Based on total visit time, I have performed more than 50% of this visit. Objective - Vital Signs Vital signs: Vital Signs Temp 99.0 F 04/13/23 10:40 Pulse 96 04/13/23 08:31 Resp 17 04/13/23 08:00 BP 169/83 04/13/23 07:00 Pulse Ox 93 L 04/13/23 07:00 FiO2 21 04/11/23 08:09 Intake & Output 04/12/23 04/13/23 04/13/23 18:59 06:59 18:59 Other: # Voids 6 2 1 - Labs CBC & Chem 7: 04/09/23 23:48 04/11/23 04:59 Assessment and Plan Time with Patient: Less than 30
[2023-04-13] MEDS: KETOROLAC 15 MG/ML 1 ML VIAL IVP SCH (20:46)
[2023-04-13] MEDS: CIPROFLOXACIN-DEXAMETH 0.3-0.1% DROPS 7.5 ML BTL BOTH EARS SCH (20:47)
[2023-04-13] MEDS: TEMAZEPAM 7.5 MG CAP PO PRN (21:01)
[2023-04-14] MEDS: methylPREDNISolone SOD SUCCI 125 MG/2 ML VIAL IV SCH ×5 (00:06→23:19)
[2023-04-14] MEDS: KETOROLAC 15 MG/ML 1 ML VIAL IVP SCH ×5 (01:46→23:18)
[2023-04-14] MEDS: PANTOPRAZOLE 40 MG TABLET PO SCH ×2 (06:16→17:15)
--- NOTE | 2023-04-14 08:20 | XR ---
EXAMINATION TYPE: XR chest 1V portable DATE OF EXAM: 04/14/2023 COMPARISON: 04/13/2023 HISTORY: Abnormal x-ray TECHNIQUE: Single frontal view of the chest is obtained. FINDINGS: Heart size stable and there is stable right lower lobe pneumonia. Left lung clear. No pneu mothorax or effusion. No overt failure. Osseous structures are stable. IMPRESSION: Stable right lower lobe pneumonia
[2023-04-14] MEDS: BUDESONIDE 1 MG/2 ML NEBU INHALATION SCH ×2 (08:32→20:32)
[2023-04-14] MEDS: IPRATROPIUM-ALBUTEROL 3 ML NEB INHALATION SCH ×4 (08:32→20:54)
[2023-04-14] MEDS: FORMOTEROL FUMARATE 20 MCG/2 ML NEBU INHALATION SCH ×2 (08:33→20:32)
[2023-04-14 09:05] LABS: Basophils # (A) 0.03 X 10*3/uL (0.00-0.10); Basophils % (A) 0.3 %; Eosinophils # (A) 0.01 X 10*3/uL (0.04-0.35); Eosinophils % (A) 0.1 %; HCT 38.6 % (37.2-46.3); HGB 12.6 g/dL (12.0-15.0); Lymphocytes # (A) 2.48 X 10*3/uL (0.90-5.00); MCH 29.9 pg (27.0-32.0); MCHC 32.6 g/dL (32.0-37.0); MCV 91.5 FL (80.0-97.0); Mean Platelet Volume 9.2 FL (9.5-12.2); Monocytes # (A) 0.38 X 10*3/uL (0.20-1.00); Monocytes % (A) 3.7 %; NRBC Per 100 WBC 0 X 10*3/uL (0.00-0.01); Neutrophils # (A) 7.26 X 10*3/uL (1.80-7.70); Neutrophils % (A) 70.3 %; Platelet Count 272 X 10*3/uL (140-440); RBC 4.22 X 10*6/uL (4.10-5.20); RDW 13.2 % (11.5-14.5); WBC 10.32 X 10*3/uL (4.50-10.00)
[2023-04-14] MEDS: polyethylene glycoL 3350 17 GM POWD.PACK PO SCH (09:28)
[2023-04-14] MEDS: LORATADINE 10 MG TAB PO SCH (09:29)
[2023-04-14] MEDS: SERTRALINE 50 MG TAB PO SCH (09:30)
[2023-04-14] MEDS: AZITHROMYCIN 500 MG TAB PO SCH (09:31)
[2023-04-14] MEDS: BENZONATATE 100 MG CAP PO SCH ×3 (09:31→20:46)
[2023-04-14 09:32] LABS: BUN/Creat Ratio 21.14 Ratio (12.00-20.00); Blood Urea Nitrogen 14.8 mg/dL (9.0-27.0); Calcium 9.2 mg/dL (8.7-10.3); Carbon Dioxide 26.2 mmol/L (21.6-31.8); Chloride 100 mmol/L (96-109); Glucose 105 mg/dL (70-110); Potassium 4.4 mmol/L (3.5-5.5); Sodium 139 mmol/L (135-145)
[2023-04-14] MEDS: FLUTICASONE 50MCG/SPRAY NASAL 16GM EA NOSTRIL SCH (09:32)
[2023-04-14] MEDS: CIPROFLOXACIN-DEXAMETH 0.3-0.1% DROPS 7.5 ML BTL BOTH EARS SCH ×2 (09:33→20:45)
[2023-04-14] MEDS: MAG HYDROX/AL HYDROX/SIMETH 30 ML CUP PO SCH ×4 (09:34→20:46)
[2023-04-14] MEDS: NYSTATIN 100,000 UNIT/ML SUSP 500,000 UNIT/5 ML CUP PO SCH ×5 (09:34→20:47)
--- NOTE | 2023-04-14 10:19 | P.CONS ---
History of Present Illness - Reason for Consult Consult date: 04/14/23 GERD Requesting physician: Kaylin Raymundo - Chief Complaint Shortness of breath,fever - History of Present Illness Gastroenterology was consulted on 04/11/2023 however there was no gastroenterology coverage at time of consult until today 04/14/2023. This is a pleasant 43-year-old female with a past medical history including gastroesophageal reflux disease, fibromyalgia, idiopathic gastroparesis, rheumatoid arthritis, thyroid disorder, IPS, chronic bronchitis, anxiety, cu rrent every day smoker presented to the emergency department with complaints of fever, cough and shortness of breath on 04/09/2023. Apparently patient has been sick off and on for the last couple of months. She stated she was diagnosed with: Back in February. She currently is testing negative. She continues to have shortness of breath, cough and wheeze. She started having fevers and chills and presented to the emergency department for further evaluation. Also states that she's been on multiple antibiotics. Pulmonology is following. She had a chest x-ray yesterday that reported right lower lobe opacity consistent with pneumonia. Today's repeat x-ray report stable pneumonia. She did have a max temp yesterday of 103.0. Afebrile today. Pulmonology likely planning on bronchoscopy this week. Apparently pulmonology believes some of her symptoms may be related to her long-standing history of acid reflux. Gastroenterology was consulted for GERD. Patient states her GERD has been relatively controlled, states that she does sometimes get symptoms during the night. She takes omepr azole daily, sometimes twice a day however states that she forgets often. Her last EGD was with Dr. Negron in February 2017 with findings of retained food in the stomach consistent with idiopathic gastroparesis and only grade B reflux esophagitis. Patient was instructed to take omeprazole 40 mg 30 minutes before breakfast and 30 minutes before dinner and recommended at that time Zantac 150 mg at bedtime. Patient states she does not take any medication before bed. Of course Zantac has been recalled as well. She states that she does not eat much might eat a granola bar through the day and eats a large dinner. She denies any nausea or vomiting, no abdominal pain. Review of Systems REVIEW OF SYSTEMS: CARDIOPULMONARY: No chest pain. Patient does have shortness of breath, wheezing, cough. Gastrointestinal: No epigastric pain. No abdominal pain. Does report some acid reflux. No nausea or vomiting. No hematemesis, coffee-ground emesis. No rectal bleeding, or melena. GENITOURINARY: No dysuria or hematuria. MUSCULOSKELETAL: Reports normal range of motion. Joint pain. SKIN: No rashes. No jaundice. ENDOCRINE: No chills, fevers. No excessive weight gain or loss. No polydipsia or polyuria. PSYCHIATRIC: Unremarkable. NEUROLOGY: No change in mental status. Denies dizziness, headache. ENT: Vision unremarkable. CONSTITUTIONAL: No recent weight loss. No fever, chills, night sweats. Past Medical History Past Medical History: Fibromyalgia, GERD/Reflux, Rheumatoid Arthritis (RA), Thyroid Disorder Additional Past Medical History / Comment(s): BULGING DISCS, DDD. NARCOLEPSY. HYROID NODULES, GOITER-thyroid nodules, injury to back recently, chronic bronchitis, IBS, gastroparesis, has choking with drinking fluid and vomiting- causes pain, History of Any Multi-Drug Resistant Organisms: None Reported Past Surgical History: Section Additional Past Surgical History / Comment(s): COLONOSCOPY/EGD. LAPAROSCOPY, pain clinic spinal injections Past Anesthesia/Blood Transfusion Reactions: Previous Problems w/ Anesthesia, Family History of Problems w/ Anesthesia, Motion Sickness Additional Past Anesthesia/Blood Transfusion Reaction / Comm: REQUIRES EXTRA ANESTHESIA; MOTHER DOES ALSO. Past Psychological History: Anxiety, Panic Disorder Smoking Status: Current every day smoker Past Alcohol Use History: Occasional Past Drug Use History: None Reported - Past Family History Mother Family Medical History: Pulmonary Embolus Medications and Allergies Home Medications Medication Instructions Recorded Confirmed Type ALPRAZolam [Xanax] 2 mg PO BID PRN 09/02/13 04/09/23 History Omeprazole [PriLOSEC] 20 mg PO BID 09/02/13 04/09/23 History Albuterol Nebulized [Ventolin 2.5 mg INHALATION RT-Q4H PRN 02/05/17 04/09/23 History Nebulized] Albuterol Inhaler [Ventolin Hfa 2 puff INHALATION RT-Q6H PRN 04/09/23 04/09/23 History Inhaler] Doxycycline Hyclate 100 mg PO BID 04/09/23 04/09/23 History Promethazine/Dextromethorphan 5 ml PO Q4HR PRN 04/09/23 04/09/23 History [Promethazine-Dm 6.25-15 mg/5Ml] Sertraline [Zoloft] 150 mg PO DAILY 04/09/23 04/09/23 History predniSONE 50 mg PO DAILY 04/09/23 04/09/23 History Allergies Allergy/AdvReac Type Severity Reaction Status Date / Time No Known Allergies Allergy Verified 04/09/23 21:51 Physical Exam Vitals: Vital Signs Temp Pulse Pulse Resp BP BP Pulse Ox 04/14/23 02:00 97.8 F 60 16 101/61 96 04/13/23 20:46 81 16 04/13/23 20:05 80 04/13/23 20:00 98.5 F 81 16 145/83 90 L 04/13/23 19:37 76 04/13/23 14:00 97.9 F 90 16 135/81 92 L 04/13/23 12:36 80 04/13/23 12:24 76 04/13/23 10:40 99.0 F 04/13/23 08:31 96 04/13/23 08:21 100 Intake and Output 04/13/23 04/14/23 04/14/23 22:59 06:59 14:59 Other: # Voids 1 2 General appearance: The patient is alert, oriented, appears in no acute distress. HET: Head is normocephalic and atraumatic. Conjunctiva pink. Sclera anicteric. Neck: Supple without lymphadenopathy. Trachea midline. Heart: Regular. Lungs: Equal expansion, normal respiratory effort. Abdomen: Soft, nontender, nondistended with bowel sounds. No guarding or rigidity. Skin: No rashes. No jaundice. Extremities: Normal skin color and turgor. No pedal edema. Neurological: No focal deficits. Alert and oriented x3. Results CBC & Chem 7: 04/14/23 05:27 04/14/23 05:27 Labs: Abnormal Lab Results - Last 24 Hours (Table) 04/13/23 Range/Units 15:10 Urine Blood Trace H (Negative) Urine Bacteria Rare H (None) /hpf Urine Mucus Rare H (None) /hpf Microbiology - Last 24 Hours (Table) 04/12/23 08:00 Gram Stain - Preliminary Sputum Assessment and Plan (1) GERD (gastroesophageal reflux disease) Narrative/Plan: 43-year-old female with a long-standing history of gastroesophageal reflux disease who is seen gastroenterology in the past. However patient states that she is does not have been complaining of GERD at this time. She is concerned with her respiratory status including wheezing, cough, shortness of breath and fever. Last EGD done on February 2017 with findings of retained food in the stomach suggestive of idiopathic gastroparesis as well as LA grade B reflux esophagitis. Patient is obese, does report drinking significant amount of caffeinated pop, only uses omeprazole usually once a day but tries to remember to use it twice a day. Discussed with patient antireflux measures including not eating 2 hours prior to bedtime, eating small frequent meals instead of large meals related to her gastroparesis, taking omeprazole 40 mg before breakfast and before dinner and adding Pepcid 20 mg at bedtime. No plans on endoscopic evaluation at this time. Patient currently being treated for pneumonia. Current Visit: Yes Status: Acute Code(s): K21.9 - GASTRO-ESOPHAGEAL REFLUX DISEASE WITHOUT ESOPHAGITIS SNOMED Code(s): 596507283 (2) Pneumonia Current Visit: Yes Status: Acute Code(s): J18.9 - PNEUMONIA, UNSPECIFIED OR GANISM SNOMED Code(s): 821132538 (3) Gastroparesis Current Visit: Yes Status: Acute Code(s): K31.84 - GASTROPARESIS SNOMED Code(s): 343129648 Plan: 1. Continue symptomatic and supportive care 2. Protonix 40 mg 30 minutes prior to breakfast and dinner 3. Will add Pepcid 20 mg at bedtime 4. Discussed with patient antireflux measures including decrease in amount of caffeine, eating more small frequent meals, avoiding eating late at night and avoid eating 2 hours prior to bedtime 5. Continue with workup and recommendations from pulmonology 6. No plans on endoscopic evaluation at this time. Patient may follow-up with gastroenterology after discharge if no improvement in symptoms. Thank you for this consultation, we will sign off at this time. Dr. Kaushal Negron I agree with the dictator's note, documented as a scribe by Alejandrina Ambrocio.
--- NOTE | 2023-04-14 13:00 | P.PN ---
Subjective Progress Note Date: 04/14/23 I am seeing this patient in new consultation today 04/10/2023 in the emergency room after she presented with chief complaint of shortness of breath, cough, fever over the last 2 days. Patient is a 43-year-old white female with past medical history significant for chronic bronchitis, chronic ongoing tobacco dependence, GERD, gastroparesis, rheumatoid arthritis, anxiety, among other things. Her primary care provider is Dr. Snow. Patient states that she has "seasonal bronchitis". She smokes approximately one quarter pack per day, down from 1 pack per day previously. She states that she has quit multiple times in the past, but has restarted within the last year. She states that Chantix has worked best in the past. She reportedly tested positive for COVID-19 back in February of this year. Since then, she has had multiple bouts of bronchitis- like symptoms. She's had shortness of breath, dry cough, intermittent fever, wheezing, and chest tightness. She states that she did have a nebulizer at home but did not have any medication for it. She has a when necessary albuterol rescue inhaler which she has been using frequently. She's been treated on 2 separate occasions at urgent care clinic with steroids and antibiotics. States that she initially improves, but worsens after she is tapered off her steroids. Her shortness of breath worsened over the last 2 days, and she came to the em ergency room. She still has a dry persistent cough, and her chest is sore with coughing. She was febrile on arrival with a T-max of 100.9F. Chest x-ray did not show any acute infiltrates or evidence of pneumonia. She was negative for influenza, RSV, COVID-19. CBC was unremarkable. No leukocytosis. She is currently sitting up in bed, on room air. SpO2 is 95%. She is in no acute respiratory distress. She's had multiple DuoNeb treatments. She still has an end expiratory wheeze. Vital signs are stable. The patient is seen today 04/11/2023 follow-up on the regular medical floor. She is awake and alert in no acute distress. She continues with a hoarse voice, dry nonproductive cough. Still somewhat bronchospastic and wheezing but better today compared to yesterday. Maintaining O2 saturations in the 90s on room air. Pro calcitonin was 0.07. Sodium 140. Potassium 4.4. Bicarb 21. BUN 11. Creatinine 0.8. Glucose 168. He is continued on Pulmicort and Perforomist, DuoNeb inhalations, Solu-Medrol. She is still having issues with acid reflux despite being on Protonix 40 mg twice a day. The patient is seen today 04/12/2023 in follow-up on the regular medical floor. She is sitting up in bed. Awake and alert in no acute distress. She continues with a dry productive cough. Sputum culture pending. She is maintaining O2 saturations in the 90s on room air. She's afebrile. Hemodynamically stable. She is continued on DuoNeb inhalations, Pulmicort and Perforomist inhalations, Solu-Medrol. Tessalon Perles and Robitussin for her cough. Remains on Protonix twice daily for her acid reflux. The patient is seen today 04/13/2023 in follow-up on the regular medical floor. She is resting fairly comfortably in bed. Awake and alert in no acute distress. She did have a temperature 103.1 earlier. Currently 99.0. She is less bronchospastic and wheezy. Continues with a dry nonproductive cough. She is continued on DuoNeb inhalations, Pulmicort and Perforomist inhalations, Solu- Medrol. Tessalon Perles and Robitussin for her cough. Protonix twice daily for her acid reflux. The patient is seen today 04/14/2023 in follow-up on the regular medical floor. She is sitting up in bed. Awake and alert in no acute distress. Still having shortness of breath, cough and congestion. Chest x-ray is now showing a right lower lobe infiltrate. Sputum culture revealed no growth. Urine legionella antigen screen negative. White count 10.3. Hemoglobin 12.6. Platelets 272. Sodium 139. Potassium 4.4. Bicarb 26. BUN 15. Creatinine 0.7. Glucose 105. He is continued on ceftriaxone and azithromycin. Remains on DuoNeb inhalations, Pulmicort and Perforomist inhalations, IV Solu-Medrol. Lovenox for DVT prophylaxis. Objective - Vital Signs Vital signs: Vital Signs Temp 98.2 F 04/14/23 08:00 Pulse 76 04/14/23 08:46 Resp 16 04/14/23 08:00 BP 143/77 04/14/23 08:00 Pulse Ox 94 L 04/14/23 08:00 FiO2 21 04/11/23 08:09 Intake & Output 04/13/23 04/14/23 04/14/23 18:59 06:59 18:59 Other: Voiding Method Toilet # Voids 6 2 - Exam GENERAL EXAM: Alert, active 43-year-old female, resting in bed, on 2 L nasal cannula, fairly comfortable, in no apparent distress. HEAD: Normocephalic and atraumatic EYES: Normal reaction of pupils, equal size. NOSE: Clear with pink turbinates. THROAT: No erythema or exudates. NECK: No masses, no JVD. CHEST: No chest wall deformity. LUNGS: Equal air entry with end expiratory wheezes heard throughout. Persistent cough. CVS: S1 and S2 normal with no audible murmur, regular rhythm. No extra heart sounds ABDOMEN: No hepatosplenomegaly, active bowel sounds, no guarding or rigidity. SPINE: No scoliosis or deformity SKIN: No rashes CENTRAL NERVOUS SYSTEM: No focal deficits, tone is normal in all 4 extremities. EXTREMITIES: There is no peripheral edema, clubbing, or cyanosis. Peripheral pulses are intact. - Labs CBC & Chem 7: 04/14/23 05:27 04/14/23 05:27 Labs: Abnormal Lab Results - Last 24 Hours (Table) 04/13/23 04/14/23 04/14/23 Range/Units 15:10 05:27 05:27 WBC 10.32 H (4.50-10.00) X 10*3/uL MPV 9.2 L (9.5-12.2) FL Immature Gran # 0.16 H (0.00-0.04) X 10*3/uL Eosinophils # 0.01 L (0.04-0.35) X 10*3/uL D-Dimer (<0.60) mg/L FEU Anion Gap 12.80 H (4.00-12.00) mmol/L BUN/Creatinine Ratio 21.14 H (12.00-20.00) Ratio Urine Blood Trace H (Negative) Urine Bacteria Rare H (None) /hpf Urine Mucus Rare H (None) /hpf 04/14/23 Range/Units 09:17 WBC (4.50-10.00) X 10*3/uL MPV (9.5-12.2) FL Immature Gran # (0.00-0.04) X 10*3/uL Eosinophils # (0.04-0.35) X 10*3/uL D-Dimer 1.97 H (<0.60) mg/L FEU Anion Gap (4.00-12.00) mmol/L BUN/Creatinine Ratio (12.00-20.00) Ratio Urine Blood (Negative) Urine Bacteria (None) /hpf Urine Mucus (None) /hpf Microbiology - Last 24 Hours (Table) 04/12/23 08:00 Gram Stain - Final Sputum Sputum Culture - Final Assessment and Plan Assessment: Suspect acute bronchitis, initial chest x-ray showed no acute infiltrates or evidence of pneumonia. Pro-calcitonin negative. Follow up chest x-ray showing some right lower lobe opacity. History of chronic bronchitis Chronic ongoing tobacco dependence History of GERD History of gastroparesis Anxiety disorder Fibromyalgia Obesity, with a BMI of 38.4 kg/m Plan: The patient was seen and evaluated Chest x-ray, labs and medications reviewed Continue bronchodilators, steroids Continue antibiotics Recheck a pro-calcitonin Check a d-dimer and if positive we'll check a CT angiogram Plan is for possible bronchoscopy with BAL in a.m. Increase her activity as tolerated We will continue to follow This patient was seen independently by the pulmonary nurse practitioner I have personally seen and examined the patient, performed the documentation and the assessment and plan as written. Number of minutes spent on the visit: 22.
--- NOTE | 2023-04-14 13:40 | CT ---
EXAMINATION TYPE: CT angio chest CT DLP: 673.1 mGycm, Automated exposure control for dose reduction was used. DATE OF EXAM: 04/14/2023 1:10 PM COMPARISON: None. CLINICAL INDICATION:Female, 43 years old with history of ELEVATED D DIMER; ELEVATED D-DIMER TECHNIQUE/CONTRAST: CTA scan of the thorax is performed with IV Contrast, patient injected with 70 mL of Isovue 370, MIP images are created and reviewed these are created on a separate workstation.. FINDINGS: Pulmonary Artery: There is no evidence for a filling defect within the pulmonary vasculature to sugge st acute pulmonary embolism. The pulmonary artery is of normal size, 2.3 cm. Heart: Heart is within normal limits in size. No pericardial effusion. Prominent pericardial fat. Vasculature: Possible minimal coronary calcifications on the left. Aorta appears normal in course and caliber without evidence of dissection flap or significant atherosclerotic disease. Proximal celiac artery and SMA are patent. Mediastinum: Several nonenlarged borderline prominent mediastinal nodes, could be reactive. Mild soft tissue thickening in the hilar regions, likely reactive lymphatic tissue. Airway: Central airways are patent. Lower neck: No significant findings. Soft Tissues: Unremarkable. Lungs/Pleura: Confluent consolidative opacity with peripheral groundglass attenuation in the posterio r aspect of the right middle lobe, plus numerous additional small patchy and nodular foci of consolid ative opacity throughout the right lower and upper lobes with small amounts of surrounding groundglas s. Small area of atelectasis suggested in the inferior-anterior right upper lobe. On the left, multip le additional small patchy and nodular foci of consolidative opacity throughout the left lower more t winter upper lobes with small amounts of surrounding groundglass. There is a trace right pleural effusio n. Mild dependent atelectasis bilaterally. No evidence of pneumothorax. Musculoskeletal: No acute osseous abnormalities. Upper Abdomen: No significant findings. IMPRESSION: 1. No evidence of pulmonary embolism. 2. No aortic dissection or aneurysm. 3. Consolidative opacity in the posterior right middle lobe, plus numerous additional small patchy a nd nodular foci of consolidative opacity with small amounts of surrounding groundglass attenuation th roughout all lobes bilaterally. This very likely represents infectious/inflammatory process. Recommen d clinical correlation and follow-up.
[2023-04-14] MEDS: ENOXAPARIN 40 MG/0.4 ML SYRINGE SQ SCH (14:18)
[2023-04-14] MEDS: FAMOTIDINE 20 MG TAB PO SCH (20:46)
--- NOTE | 2023-04-14 22:41 | P.PN ---
Subjective Progress Note Date: 04/14/23 Patient given with comments of shortness of breath does smoke half a pack of cigarettes a day trying to quit smoking. Patient does have history of seasonal bronchitis and seasonal asthma. Patient has been coughing unable to bring up anything chest x-ray did not show any pneumonia, patient is negative for COVID- 19, RSV and influenza. Patient does have leukocytosis. Patient was given steroids and antibiotic in urgent care clinic. Patient was having a dry cough with some chest tightness and wheezing 04/11/2023 Patient evaluated today resting in bed Continues with significant shortness of breath bronchospastic cough. Patient remains on high dose solumedrol IV. Remains on 2L of oxygen. Procalcitonin level 0.07 no need for antibiotics at this time. Patient states at this time her acid reflux is under control she is on regimen of protonix pepcid and maalox was added. Needs to follow up with GI who is not on staff until Friday. 04/12/2023 Patient is evaluated today resting in bed. She does continue significant shortness of breath and anxiety. She remains on high dose of IV Solu-Medrol her tongue also has evidence of white coating and we will treat for oral thrush with the addition of nystatin. She is placed on oral azithromycin by pulmonary services. Patient does complain of sinus congestion and fullness and has been started on Claritin and Flonase and will give naproxen for the headache. She continues also on a regimen of Protonix Pepcid and Maalox is not reporting any worsening reflux symptoms. She has been weaned to room air. 04/13/2023 Patient evaluated today sitting up in bed with family at bedside. Did report ear fullness which she does have erythema and bulging disc on the left. She continues to have bronchospastic cough with lobo sputum. She has pain when coughing and tearful. 04/14/2023 Patient evaluated today sitting up in bed. Has not been able to tolerate much activity. Currently on 2L of oxygen. Patient has been maintained on high dose steroids, as well as PO azithromycin and IV ceftriaxone has been added as well. Patient has had negative viral panel, we are pending mycoplasma, the legionella antigen comes back negative. proBNP of 116. Her D Dimer does come back elevated today at 1.[address] angiography showing no acute pulmonary embolism. There is consolidative opacity in the posterior right middle lobe, plus numerous additional small patchy and nodular foci of consolidative opacity with small amounts of surrounding groundglass attenuation throughout all lobes bilaterally. This likely represents infectious/inflammatory process. Recommending clinical correlation. 03/16/2023 Patient is evaluated today on the medical floor. Remains on room air to 2L of oxygen. Continues on IV steroids, inhaled steroids. Also on nystatin. Patient continues to report significant shortness of breath and harsh bronchospastic cough. She is fatigued. Had a chest xray today showing stable right lower lobe pneumonia. Did have an elevated D Dimer of 1.97. Chest CTA negative for pulmonary embolism, there is consolidative opacity in the posterior right middle lobe, plus numerous additional small patchy and nodular foci of consolidative opacity with small amounts of groundglass attentuation throughout all lobes bilaterally. This very likely represents infectious/inflammatory process. Patient will be bronched tomorrow. Review of Systems Constitutional: Denied any fatigue denied any fever. Cardio vascular: denied any chest pain, palpitations Gastrointestinal: denied any nausea, vomiting, diarrhea Pulmonary: Reports shortness of breath and persistent cough Neurologic denied any new focal deficits All inpatient medications were reviewed and appropriate changes in these medications as dictated in the interval history and assessment and plan. PHYSICAL EXAMINATION: GENERAL: The patient is alert and oriented x3, not in any acute distress. Well developed, well nourished. HEENT: Pupils are round and equally reacting to light. EOMI. No scleral icterus. No conjunctival pallor. Normocephalic, atraumatic. No pharyngeal erythema. No thyromegaly. CARDIOVASCULAR: S1 and S2 present. No murmurs, rubs, or gallops. PULMONARY: Faint scattered wheezing ABDOMEN: Soft, nontender, nondistended, normoactive bowel sounds. No palpable organomegaly. MUSCULOSKELETAL: No joint swelling or deformity. EXTREMITIES: No cyanosis, clubbing, or pedal edema. NEUROLOGICAL: Gross neurological examination did not reveal any focal deficits. SKIN: No rashes. Assessment and plan -Bronchitis, possible COPD exacerbation: Procalcitonin level WNL patient has interval development of fever and will recommend to add IV ceftriaxone with oral azithromycin. Sputum sample is pending. Patient continues on supportive care. Patient continues on IV steroids and inhaled steroids, bronchodilators. Patient will go for bronchoscopy tomorrow. -Right lower lobe pneumonia likely community acquired on IV antibiotics. -Otitis media with evidence of erythema and bulging of the ear drum bilaterally greater on the left patient is now on ciprodex gtts. -Oral thrush started on nystatin swish and swallow -Elevated D-Dimer with CTA negative for pulmonary embolism. -Nicotine use: Counseling was provided -Gastroesophageal reflux disease Continues on combination of protonix, pepcid and maalox and recommend follow up with GI does not need to be during this hospital stay. -Hx of narcolepsy -Hx of gastroparesis -anxiety disorder -Obesity -Chronic and ongoing nicotine use -Fever secondary to bronchitis DVT prophylaxis: Early ablation The impression and plan of care has been dictated by Shivani Duarte Nurse Practitioner as directed. Dr. Sai MD I have performed a history and physical examination and medical decision making of this patient, discussed the same with the dictator, and agree with the dictators assessment and plan as written, documented as a scribe. Based on total visit time, I have performed more than 50% of this visit. Objective - Vital Signs Vital signs: Vital Signs Temp 98.2 F 04/14/23 08:00 Pulse 80 04/14/23 12:53 Resp 16 04/14/23 08:00 BP 143/77 04/14/23 08:00 Pulse Ox 94 L 04/14/23 08:00 FiO2 21 04/11/23 08:09 Intake & Output 04/13/23 04/14/23 04/14/23 18:59 06:59 18:59 Intake Total 720 Balance 720 Intake: Oral 720 Other: Voiding Method Toilet # Voids 6 2 - Labs CBC & Chem 7: 04/14/23 05:27 04/14/23 05:27 Labs: Abnormal Lab Results - Last 24 Hours (Table) 04/13/23 04/14/23 04/14/23 Range/Units 15:10 05:27 05:27 WBC 10.32 H (4.50-10.00) X 10*3/uL MPV 9.2 L (9.5-12.2) FL Immature Gran # 0.16 H (0.00-0.04) X 10*3/uL Eosinophils # 0.01 L (0.04-0.35) X 10*3/uL D-Dimer (<0.60) mg/L FEU Anion Gap 12.80 H (4.00-12.00) mmol/L BUN/Creatinine Ratio 21.14 H (12.00-20.00) Ratio Urine Blood Trace H (Negative) Urine Bacteria Rare H (None) /hpf Urine Mucus Rare H (None) /hpf 04/14/23 Range/Units 09:17 WBC (4.50-10.00) X 10*3/uL MPV (9.5-12.2) FL Immature Gran # (0.00-0.04) X 10*3/uL Eosinophils # (0.04-0.35) X 10*3/uL D-Dimer 1.97 H (<0.60) mg/L FEU Anion Gap (4.00-12.00) mmol/L BUN/Creatinine Ratio (12.00-20.00) Ratio Urine Blood (Negative) Urine Bacteria (None) /hpf Urine Mucus (None) /hpf Microbiology - Last 24 Hours (Table) 04/12/23 08:00 Gram Stain - Final Sputum Sputum Culture - Final Assessment and Plan Time with Patient: Less than 30
[2023-04-14] MEDS: TEMAZEPAM 7.5 MG CAP PO PRN (23:18)
[2023-04-14] MEDS: ALPRAZolam 1 MG TAB PO PRN (23:18)
[2023-04-15] MEDS: KETOROLAC 15 MG/ML 1 ML VIAL IVP SCH ×4 (06:56→23:25)
[2023-04-15] MEDS: methylPREDNISolone SOD SUCCI 125 MG/2 ML VIAL IV SCH ×4 (06:57→23:25)
[2023-04-15] MEDS: PANTOPRAZOLE 40 MG TABLET PO SCH ×2 (06:57→17:01)
[2023-04-15] MEDS: CIPROFLOXACIN-DEXAMETH 0.3-0.1% DROPS 7.5 ML BTL BOTH EARS SCH ×2 (08:01→20:00)
[2023-04-15] MEDS: BENZONATATE 100 MG CAP PO SCH ×3 (08:01→19:59)
[2023-04-15] MEDS: SERTRALINE 50 MG TAB PO SCH (08:02)
[2023-04-15] MEDS: ENOXAPARIN 40 MG/0.4 ML SYRINGE SQ SCH (08:02)
[2023-04-15] MEDS: FLUTICASONE 50MCG/SPRAY NASAL 16GM EA NOSTRIL SCH (08:02)
[2023-04-15] MEDS: LORATADINE 10 MG TAB PO SCH (08:03)
[2023-04-15] MEDS: MAG HYDROX/AL HYDROX/SIMETH 30 ML CUP PO SCH ×4 (08:03→19:59)
[2023-04-15] MEDS: IPRATROPIUM-ALBUTEROL 3 ML NEB INHALATION SCH ×4 (08:25→20:16)
[2023-04-15] MEDS: BUDESONIDE 1 MG/2 ML NEBU INHALATION SCH ×2 (08:25→20:16)
[2023-04-15] MEDS: FORMOTEROL FUMARATE 20 MCG/2 ML NEBU INHALATION SCH ×2 (08:26→20:16)
[2023-04-15] MEDS: polyethylene glycoL 3350 17 GM POWD.PACK PO SCH (09:00)
[2023-04-15] MEDS: NYSTATIN 100,000 UNIT/ML SUSP 500,000 UNIT/5 ML CUP PO SCH ×4 (09:00→20:04)
--- NOTE | 2023-04-15 10:29 | P.PN ---
Subjective Progress Note Date: 04/15/23 Principal diagnosis: Shortness of breath, wheezing Gastroenterology was consulted on 04/11/2023 however there was no gastroenterology coverage at time of consult until today 04/14/2023. This is a pleasant 43-year-old female with a past medical history including gastroesophageal reflux disease, fibromyalgia, idiopathic gastroparesis, rheumatoid arthritis, thyroid disorder, IPS, chronic bronchitis, anxiety, current every day smoker presented to the emergency department with complaints of fever, cough and shortness of breath on 04/09/2023. Apparently patient has been sick off and on for the last couple of months. She stated she was diagnosed with: Back in February. She currently is testing negative. She continues to have shortness of breath, cough and wheeze. She started having fevers and chills and presented to the emergency department for further evaluation. Also states that she's been on multiple antibiotics. Pulmonology is following. She had a chest x-ray yesterday that reported right lower lobe opacity consistent with pneumonia. Today's repeat x-ray report stable pneumonia. She did have a max temp yesterday of 103.0. Afebrile today. Pulmonology likely planning on bronchoscopy this week. Apparently pulmonology believes some of her symptoms may be related to her long-standing history of acid reflux. Gastroenterology was consulted for GERD. Patient states her GERD has been relatively controlled, states that she does sometimes get symptoms during the night. She takes omeprazole daily, sometimes twice a day however states that she forgets often. Her last EGD was with Dr. Negron in February 2017 with findings of retained food in the stomach consistent with idiopathic gastroparesis and only grade B reflux esophagitis. Patient was instructed to take omeprazole 40 mg 30 minutes before breakfast and 30 minutes before dinner and recommended at that time Zantac 150 mg at bedtime. Patient states she does not take any medication before bed. Of course Zantac has been recalled as well. She states that she does not eat much might eat a granola bar through the day and eats a large dinner. She denies any nausea or vomiting, no abdominal pain. 04/15/2023 Patient seen and examined today as a follow-up. She is without any new complain ts. Denies any abdominal pain or epigastric pain. No nausea or vomiting. She is scheduled for bronchoscopy today. She had a CT angiogram of the chest yesterday which reported no evidence of pulmonary embolism. No aortic dissection or aneurysm. Consolidative obesity in the posterior right middle lobe, plus numerous additional small patchy and nodular foci of consolidative obesity with small amount of surrounding groundglass attenuation throughout all lobes bilaterally. Very likely represents infectious/inflammatory process. Recommend clinical correlation and follow-up. Objective - Vital Signs Vital signs: Vital Signs Temp 98.0 F 04/15/23 07:52 Pulse 70 04/15/23 07:52 Resp 16 04/15/23 07:52 BP 147/87 04/15/23 07:52 Pulse Ox 94 L 04/15/23 07:52 FiO2 21 04/11/23 08:09 Intake & Output 04/14/23 04/15/23 04/15/23 18:59 06:59 18:59 Intake Total 720 Balance 720 Intake: Oral 720 Other: Voiding Method Toilet Toilet # Voids 5 2 - Exam General appearance: The patient is alert, oriented, appears in no acute distress. HET: Head is normocephalic and atraumatic. Conjunctiva pink. Sclera anicteric. Neck: Supple without lymphadenopathy. Abdomen: Soft, nontender, nondistended with bowel sounds. No guarding or rigi dity. Extremities: Normal skin color and turgor. No pedal edema Skin: No rashes, no jaundice Neurological: No focal deficits. Alert and oriented. - Labs CBC & Chem 7: 04/14/23 05:27 04/14/23 05:27 Labs: Abnormal Lab Results - Last 24 Hours (Table) 04/14/23 04/14/23 04/14/23 Range/Units 05:27 05:27 09:17 WBC 10.32 H (4.50-10.00) X 10*3/uL MPV 9.2 L (9.5-12.2) FL Immature Gran # 0.16 H (0.00-0.04) X 10*3/uL Eosinophils # 0.01 L (0.04-0.35) X 10*3/uL D-Dimer 1.97 H (<0.60) mg/L FEU Anion Gap 12.80 H (4.00-12.00) mmol/L BUN/Creatinine Ratio 21.14 H (12.00-20.00) Ratio Microbiology - Last 24 Hours (Table) 04/13/23 12:46 Blood Culture - Preliminary Blood 04/12/23 08:00 Gram Stain - Final Sputum Sputum Culture - Final Assessment and Plan (1) GERD (gastroesophageal reflux disease) Narrative/Plan: 43-year-old female with a long-standing history of gastroesophageal reflux disease who is seen gastroenterology in the past. However patient states that she is does not have been complaining of GERD at this time. She is concerned with her respiratory status including wheezing, cough, shortness of breath and fever. Last EGD done on February 2017 with findings of retained food in the stomach suggestive of idiopathic gastroparesis as well as LA grade B reflux esophagitis. Patient is obese, does report drinking significant amount of caffeinated pop, only uses omeprazole usually once a day but tries to remember to use it twice a day. Discussed with patient antireflux measures including not eating 2 hours prior to bedtime, eating small frequent meals instead of large meals related to her gastroparesis, taking omeprazole 40 mg before breakfast and before dinner and adding Pepcid 20 mg at bedtime. No plans on endoscopic evaluation at this time. Patient currently being treated for pneumonia. Current Visit: Yes Status: Acute Code(s): K21.9 - GASTRO-ESOPHAGEAL REFLUX DISEASE WITHOUT ESOPHAGITIS SNOMED Code(s): 964602993 (2) Pneumonia Current Visit: Yes Status: Acute Code(s): J18.9 - PNEUMONIA, UNSPECIFIED ORGANISM SNOMED Code(s): 424383353 (3) Gastroparesis Current Visit: Yes Status: Acute Code(s): K31.84 - GASTROPARESIS SNOMED Code(s): 931320170 Plan: 1. Continue symptomatic and supportive care 2. Protonix 40 mg 30 minutes prior to breakfast and dinner 3. Will add Pepcid 20 mg at bedtime 4. Discussed with patient antireflux measures including decrease in amount of caffeine, eating more small frequent meals, avoiding eating late at night and avoid eating 2 hours prior to bedtime 5. Continue with workup and recommendations from pulmonology 6. No plans on endoscopic evaluation at this time. Patient may follow-up with gastroenterology after discharge if no improvement in symptoms. 1. Discharge home on omeprazole 40 mg 30 minutes before breakfast and dinner, with Pepcid 20 mg at bedtime Thank you for this consultation, we will sign off at this time. Dr. Kaushal Negron I agree with the dictator's note, documented as a scribe by Alejandrina Ambrocio.
--- NOTE | 2023-04-15 11:32 | P.PN ---
Subjective Progress Note Date: 04/15/23 I am seeing this patient in new consultation today 04/10/2023 in the emergency room after she presented with chief complaint of shortness of breath, cough, fever over the last 2 days. Patient is a 43-year-old white female with past medical history significant for chronic bronchitis, chronic ongoing tobacco dependence, GERD, gastroparesis, rheumatoid arthritis, anxiety, among other things. Her primary care provider is Dr. Snow. Patient states that she has "seasonal bronchitis". She smokes approximately one quarter pack per day, down from 1 pack per day previously. She states that she has quit multiple times in the past, but has restarted within the last year. She states that Chantix has worked best in the past. She reportedly tested positive for COVID-19 back in February of this year. Since then, she has had multiple bouts of bronchitis- like symptoms. She's had shortness of breath, dry cough, intermittent fever, wheezing, and chest tightness. She states that she did have a nebulizer at home but did not have any medication for it. She has a when necessary albuterol rescue inhaler which she has been using frequently. She's been treated on 2 separate occasions at urgent care clinic with steroids and antibiotics. States that she initially improves, but worsens after she is tapered off her steroids. Her shortness of breath worsened over the last 2 days, and she came to the em ergency room. She still has a dry persistent cough, and her chest is sore with coughing. She was febrile on arrival with a T-max of 100.9F. Chest x-ray did not show any acute infiltrates or evidence of pneumonia. She was negative for influenza, RSV, COVID-19. CBC was unremarkable. No leukocytosis. She is currently sitting up in bed, on room air. SpO2 is 95%. She is in no acute respiratory distress. She's had multiple DuoNeb treatments. She still has an end expiratory wheeze. Vital signs are stable. The patient is seen today 04/11/2023 follow-up on the regular medical floor. She is awake and alert in no acute distress. She continues with a hoarse voice, dry nonproductive cough. Still somewhat bronchospastic and wheezing but better today compared to yesterday. Maintaining O2 saturations in the 90s on room air. Pro calcitonin was 0.07. Sodium 140. Potassium 4.4. Bicarb 21. BUN 11. Creatinine 0.8. Glucose 168. He is continued on Pulmicort and Perforomist, DuoNeb inhalations, Solu-Medrol. She is still having issues with acid reflux despite being on Protonix 40 mg twice a day. The patient is seen today 04/12/2023 in follow-up on the regular medical floor. She is sitting up in bed. Awake and alert in no acute distress. She continues with a dry productive cough. Sputum culture pending. She is maintaining O2 saturations in the 90s on room air. She's afebrile. Hemodynamically stable. She is continued on DuoNeb inhalations, Pulmicort and Perforomist inhalations, Solu-Medrol. Tessalon Perles and Robitussin for her cough. Remains on Protonix twice daily for her acid reflux. The patient is seen today 04/13/2023 in follow-up on the regular medical floor. She is resting fairly comfortably in bed. Awake and alert in no acute distress. She did have a temperature 103.1 earlier. Currently 99.0. She is less bronchospastic and wheezy. Continues with a dry nonproductive cough. She is continued on DuoNeb inhalations, Pulmicort and Perforomist inhalations, Solu- Medrol. Tessalon Perles and Robitussin for her cough. Protonix twice daily for her acid reflux. The patient is seen today 04/14/2023 in follow-up on the regular medical floor. She is sitting up in bed. Awake and alert in no acute distress. Still having shortness of breath, cough and congestion. Chest x-ray is now showing a right lower lobe infiltrate. Sputum culture revealed no growth. Urine legionella antigen screen negative. White count 10.3. Hemoglobin 12.6. Platelets 272. Sodium 139. Potassium 4.4. Bicarb 26. BUN 15. Creatinine 0.7. Glucose 105. He is continued on ceftriaxone and azithromycin. Remains on DuoNeb inhalations, Pulmicort and Perforomist inhalations, IV Solu-Medrol. Lovenox for DVT prophylaxis. The patient is seen today 04/15/2023 in follow-up on the regular medical floor. She is resting comfortably in bed. Awake and alert in no acute distress. She has been slow to progress. Still with a loose cough. Shortness of breath with exertion. Shortness of breath with conversation. CT angiogram doubt pulmonary embolism. There is noted consolidative opacity in the posterior right middle lobe plus numerous additional small patchy and nodular foci of consolidative opacity in the small amounts of surrounding ground glass attenuation throughout the lobes bilaterally. Likely representing infectious/inflammatory process. Plan is for bronchoscopy with BAL and biopsies today. Sputum culture revealed no growth. Blood cultures revealing no growth. Urine hCG negative. She remains on antibiotics in the form of ceftriaxone. Continued on DuoNeb inhalations, Pulmicort and Perforomist inhalations, Solu-Medrol, Tessalon Perles. She is on both Protonix and Pepcid for her uncontrolled GERD. Objective - Vital Signs Vital signs: Vital Signs Temp 98.0 F 04/15/23 07:52 Pulse 68 04/15/23 08:42 Resp 16 04/15/23 07:52 BP 147/87 04/15/23 07:52 Pulse Ox 94 L 04/15/23 07:52 FiO2 21 04/11/23 08:09 Intake & Output 04/14/23 04/15/23 04/15/23 18:59 06:59 18:59 Intake Total 720 Balance 720 Intake: Oral 720 Other: Voiding Method Toilet Toilet # Voids 5 2 - Exam GENERAL EXAM: Alert, oriented, pleasant 43-year-old female, on 2 L nasal cannula, in no apparent distress. HEAD: Normocephalic and atraumatic EYES: Normal reaction of pupils, equal size. NOSE: Clear with pink turbinates. THROAT: No erythema or exudates. NECK: No masses, no JVD. CHEST: No chest wall deformity. LUNGS: Equal air entry with end expiratory wheezes heard throughout. Few scattered rhonchi. Persistent cough. CVS: S1 and S2 normal with no audible murmur, regular rhythm. No extra heart sounds ABDOMEN: No hepatosplenomegaly, active bowel sounds, no guarding or rigidity. SPINE: No scoliosis or deformity SKIN: No rashes CENTRAL NERVOUS SYSTEM: No focal deficits, tone is normal in all 4 extremities. EXTREMITIES: There is no peripheral edema, clubbing, or cyanosis. Peripheral pulses are intact. - Labs CBC & Chem 7: 04/14/23 05:27 04/14/23 05:27 Labs: Microbiology - Last 24 Hours (Table) 04/13/23 12:46 Blood Culture - Preliminary Blood 04/12/23 08:00 Gram Stain - Final Sputum Sputum Culture - Final Assessment and Plan Assessment: Suspect acute bronchitis, initial chest x-ray showed no acute infiltrates or evidence of pneumonia. Pro-calcitonin negative. Follow up chest x-ray showing some right lower lobe opacity. CT angiogram doubt pulmonary embolism. There is noted consolidative opacity in the posterior right middle lobe plus numerous additional small patchy and nodular foci of consolidative opacity in the small amounts of surrounding ground glass attenuation throughout the lobes bilaterally. Likely representing infectious/inflammatory process. Plan is for bronchoscopy with BAL and biopsies today. History of chronic bronchitis Chronic ongoing tobacco dependence History of GERD History of gastroparesis Anxiety disorder Fibromyalgia Obesity, with a BMI of 38.4 kg/m Plan: The patient was seen and evaluated CT scan of the chest, labs and medications reviewed Plan is for bronchoscopy today The patient is agreeable to the plan Urine H CG negative Continue the current treatment plan We will continue to follow This patient was seen independently by the nurse practitioner who performed the pulmonary medical decision making I have personally seen and examined the patient, performed the documentation and the assessment and plan as written. Number of minutes spent on the visit: 24.
[2023-04-15] MEDS ORDERED: LIDOCAINE 2% (PF) 20 MG/ML 5 ML VIAL ONE (13:34)
[2023-04-15] MEDS ORDERED: ONDANSETRON 4 MG/2 ML VIAL ONE (13:34)
[2023-04-15] MEDS ORDERED: MIDAZOLAM 2 MG/2 ML VIAL ONE (13:34)
[2023-04-15] MEDS ORDERED: SUCCINYLCHOLINE CHLORIDE 200 MG/10 ML VIAL IV ONE (13:34)
[2023-04-15] MEDS ORDERED: DEXAMETHASONE SOD PHOSPHATE 4 MG/ML 1 ML VIAL ONE (13:34)
[2023-04-15] MEDS ORDERED: PHENYLEPHRINE-0.9% NACL SYG 1,000 MCG/10 ML SYRINGE ONE (13:34)
[2023-04-15] MEDS ORDERED: fentaNYL (PF) 50 MCG/ML 2 ML AMP ONE (13:34)
[2023-04-15] MEDS ORDERED: PROPOFOL 10 MG/ML 20 ML VIAL IV ONE (13:34)
[2023-04-15] MEDS ORDERED: SODIUM CHLORIDE 0.9% 1,000 ML IV ONE (13:37)
[2023-04-15] MEDS ORDERED: LIDOCAINE 2% (PF) 20 MG/ML 5 ML VIAL INHALATION ONE (14:59)
[2023-04-15] MEDS ORDERED: guaiFENesin SYRUP 100MG/5ML 200 MG/10 ML CUP PO PRN (15:00)
--- NOTE | 2023-04-15 15:04 | FL ---
EXAMINATION TYPE: FL bronchoscopy DATE OF EXAM: 04/15/2023 COMPARISON: NONE HISTORY: Fluoroscopy TECHNIQUE: Fluoroscopy. FINDINGS: Fluoroscopic guidance was provided during procedure. Total dose area product (DAP) in uGy* m?, mGy*cm? (or similar): 3.2314. IMPRESSION: As Above.
--- NOTE | 2023-04-15 15:52 | XR ---
EXAMINATION TYPE: XR chest 1V DATE OF EXAM: 04/15/2023 COMPARISON: 04/14/2023 HISTORY: Post bronchoscopy TECHNIQUE: Single frontal view of the chest is obtained. FINDINGS: Right lower lobe infiltrate and nodularity stable. No sizable pneumothorax. Left lung ash r. Limited inspiration. Osseous structures stable. Heart size normal. IMPRESSION: 1. Right lower lobe infiltrate and nodularity stable. Correlate for pneumonia. Underlying neoplasm no t excluded. 2. No evidence of pneumothorax.
[2023-04-15] MEDS: ALPRAZolam 1 MG TAB PO PRN (19:57)
[2023-04-15] MEDS: FAMOTIDINE 20 MG TAB PO SCH (19:59)
--- NOTE | 2023-04-15 20:40 | PCN ---
PROCEDURE NOTE PULMONARY/CRITICAL CARE PROCEDURE NOTE: PROCEDURES PERFORMED: Bronchoscopy; airway examination; therapeutic lavage; BAL, right middle lobe; BAL, right lower lobe; brushes, right middle lobe; brushes, right lower lobe; transbronchial with endobronchial biopsies, right middle lobe; transbronchial and endobronchial biopsies, right lower lobe. PREOPERATIVE DIAGNOSIS: Atypical pneumonia. POSTOPERATIVE DIAGNOSIS: Atypical pneumonia. ANESTHESIA: The patient's procedure was done under general anesthesia. Anesthesia was provided by [facility]. The patient was under general anesthetic. There was informed consent and universal timeout. HARP REGULATOR: Dr. Day. FIRST STRIKER OFF: Dr. Kaylin Raymundo. DESCRIPTION OF PROCEDURE: The patient's procedure took place in [facility] room #1. Radiology was there with fluoroscopy for the procedure. After the patient was under the effects of general anesthesia, and intubated, the bronchoscope was inserted through the bronchoscope adapter, connected to the endotracheal tube. The endotracheal tube ended in the distal trachea and we had to pull it back a bit, so that we could get into the right and left side. Of note, on quick evaluation, there was significant purulent looking material throughout both lungs. It was quite viscid and thick and noted as mentioned both in the right lung and left lung. We did a quick evaluation of the left lung. Left upper lobe and its 2 segments, the lingula and its 2 segments, and left lower lobe and its 4 segments all otherwise appeared normal except for diffuse erythema and hyperemia of the airways. There was some mucosal friability and some vascular engorgement. There was no dominant mass or tumor. On the right side, likewise, the right upper lobe and its 3 segments, right middle lobe and its 2 segments, right lower lobe and its 5 segments all had normal appearance other than diffuse bronchitis throughout, which was moderate to severe. There were hyperemia and erythema of the airways. No dominant mass or tumor. Next, under fluoroscopic guidance, we did brushes in the area of the right middle lobe. Subsequent to that, we did multiple transbronchial and endobronchial biopsies in the right middle lobe, and we finished off with a BAL in the right middle lobe. Next, under fluoroscopic guidance, we did brushes in the right lower lobe. Subsequent to that, we did multiple endobronchial and transbronchial biopsies to the right lower lobe, and we finished out with a BAL to the right lower lobe. The patient tolerated the procedure well. There was no evidence of pneumothorax on fluoroscopy. We ensured hemostasis before removing the scope. There was some minimal bleeding throughout in the airways when biopsies were obtained. That blood was suctioned. There was no immediate complication. A chest x-ray will be ordered. The patient will be recovered in the postanesthesia care unit. Again, no major complications or problems. A chest x- ray was ordered. The specimens to go to the laboratory for analysis including cytology and microbiology. MMODL / IJN: [id number] /
[2023-04-15] MEDS: TEMAZEPAM 7.5 MG CAP PO PRN (23:26)
--- NOTE | 2023-04-15 23:42 | P.PN ---
Subjective Progress Note Date: 04/15/23 Patient given with comments of shortness of breath does smoke half a pack of cigarettes a day trying to quit smoking. Patient does have history of seasonal bronchitis and seasonal asthma. Patient has been coughing unable to bring up anything chest x-ray did not show any pneumonia, patient is negative for COVID- 19, RSV and influenza. Patient does have leukocytosis. Patient was given steroids and antibiotic in urgent care clinic. Patient was having a dry cough with some chest tightness and wheezing 04/11/2023 Patient evaluated today resting in bed Continues with significant shortness of breath bronchospastic cough. Patient remains on high dose solumedrol IV. Remains on 2L of oxygen. Procalcitonin level 0.07 no need for antibiotics at this time. Patient states at this time her acid reflux is under control she is on regimen of protonix pepcid and maalox was added. Needs to follow up with GI who is not on staff until Friday. 04/12/2023 Patient is evaluated today resting in bed. She does continue significant shortness of breath and anxiety. She remains on high dose of IV Solu-Medrol her tongue also has evidence of white coating and we will treat for oral thrush with the addition of nystatin. She is placed on oral azithromycin by pulmonary services. Patient does complain of sinus congestion and fullness and has been started on Claritin and Flonase and will give naproxen for the headache. She continues also on a regimen of Protonix Pepcid and Maalox is not reporting any worsening reflux symptoms. She has been weaned to room air. 04/13/2023 Patient evaluated today sitting up in bed with family at bedside. Did report ear fullness which she does have erythema and bulging disc on the left. She continues to have bronchospastic cough with lobo sputum. She has pain when coughing and tearful. 04/14/2023 Patient evaluated today sitting up in bed. Has not been able to tolerate much activity. Currently on 2L of oxygen. Patient has been maintained on high dose steroids, as well as PO azithromycin and IV ceftriaxone has been added as well. Patient has had negative viral panel, we are pending mycoplasma, the legionella antigen comes back negative. proBNP of 116. Her D Dimer does come back elevated today at 1.[address] angiography showing no acute pulmonary embolism. There is consolidative opacity in the posterior right middle lobe, plus numerous additional small patchy and nodular foci of consolidative opacity with small amounts of surrounding groundglass attenuation throughout all lobes bilaterally. This likely represents infectious/inflammatory process. Recommending clinical correlation. 03/16/2023 Patient is evaluated today on the medical floor. Remains on room air to 2L of oxygen. Continues on IV steroids, inhaled steroids. Also on nystatin. Patient continues to report significant shortness of breath and harsh bronchospastic cough. She is fatigued. Had a chest xray today showing stable right lower lobe pneumonia. Did have an elevated D Dimer of 1.97. Chest CTA negative for pulmonary embolism, there is consolidative opacity in the posterior right middle lobe, plus numerous additional small patchy and nodular foci of consolidative opacity with small amounts of groundglass attentuation throughout all lobes bilaterally. This very likely represents infectious/inflammatory process. Patient will be bronched tomorrow. Patient was re-evaluated today and pending bronchoscopy. Patient continued on IV ceftriaxone, IV steroids. She is on 2L of oxygen. Review of Systems Constitutional: Denied any fatigue denied any fever. Cardio vascular: denied any chest pain, palpitations Gastrointestinal: denied any nausea, vomiting, diarrhea Pulmonary: Reports shortness of breath and persistent cough Neurologic denied any new focal deficits All inpatient medications were reviewed and appropriate changes in these medications as dictated in the interval history and assessment and plan. PHYSICAL EXAMINATION: GENERAL: The patient is alert and oriented x3, not in any acute distress. Well developed, well nourished. HEENT: Pupils are round and equally reacting to light. EOMI. No scleral icterus. No conjunctival pallor. Normocephalic, atraumatic. No pharyngeal erythema. No thyromegaly. CARDIOVASCULAR: S1 and S2 present. No murmurs, rubs, or gallops. PULMONARY: Faint scattered wheezing ABDOMEN: Soft, nontender, nondistended, normoactive bowel sounds. No palpable organomegaly. MUSCULOSKELETAL: No joint swelling or deformity. EXTREMITIES: No cyanosis, clubbing, or pedal edema. NEUROLOGICAL: Gross neurological examination did not reveal any focal deficits. SKIN: No rashes. Assessment and plan -Bronchitis, possible COPD exacerbation: Procalcitonin level WNL patient has interval development of fever and will recommend to add IV ceftriaxone with oral azithromycin. Sputum sample is pending. Patient continues on supportive care. Patient continues on IV steroids and inhaled steroids, bronchodilators. Patient will go for bronchoscopy today -Right lower lobe pneumonia likely community acquired on IV antibiotics. -Otitis media with evidence of erythema and bulging of the ear drum bilaterally greater on the left patient is now on ciprodex gtts. -Oral thrush started on nystatin swish and swallow -Elevated D-Dimer with CTA negative for pulmonary embolism. -Nicotine use: Counseling was provided -Gastroesophageal reflux disease Continues on combination of protonix, pepcid and maalox and recommend follow up with GI does not need to be during this hospital stay. -Hx of narcolepsy -Hx of gastroparesis -anxiety disorder -Obesity -Chronic and ongoing nicotine use -Fever secondary to bronchitis DVT prophylaxis: Early ablation The impression and plan of care has been dictated by Shivani Duarte Nurse Practitioner as directed. Dr. Sai MD I have performed a history and physical examination and medical decision making of this patient, discussed the same with the dictator, and agree with the dictators assessment and plan as written, documented as a scribe. Based on total visit time, I have performed more than 50% of this visit. Objective - Vital Signs Vital signs: Vital Signs Temp 98.1 F 04/15/23 20:00 Pulse 80 04/15/23 20:28 Resp 18 04/15/23 20:00 BP 159/94 04/15/23 20:00 Pulse Ox 97 04/15/23 20:00 FiO2 21 04/11/23 08:09 Intake & Output 04/15/23 04/15/23 04/16/23 06:59 18:59 06:59 Intake Total 300 Balance 300 Intake: IV 300 Other: Voiding Method Toilet Toilet Toilet # Voids 2 2 # Bowel Movements 1 - Labs CBC & Chem 7: 04/14/23 05:27 04/14/23 05:27 Labs: Microbiology - Last 24 Hours (Table) 04/13/23 12:46 Blood Culture - Preliminary Blood Assessment and Plan Time with Patient: Less than 30
[2023-04-16 05:00] LABS: Mycoplasma IgG Antibody (EIA) 1.29 INDEX (<=0.90); Mycoplasma IgM Antibody 0.59 INDEX (<=0.90)
[2023-04-16 05:57] LABS: Appearance,BF Bloody (Clear); RBC, Body Fluid 65750 /UL (0-2000)
[2023-04-16] MEDS: KETOROLAC 15 MG/ML 1 ML VIAL IVP SCH ×4 (05:57→23:16)
[2023-04-16] MEDS: PANTOPRAZOLE 40 MG TABLET PO SCH ×2 (05:58→18:02)
[2023-04-16] MEDS: methylPREDNISolone SOD SUCCI 125 MG/2 ML VIAL IV SCH ×4 (05:58→23:16)
[2023-04-16 05:59] LABS: Appearance,BF Bloody (Clear); RBC, Body Fluid 116000 /UL (0-2000)
[2023-04-16] MEDS: IPRATROPIUM-ALBUTEROL 3 ML NEB INHALATION SCH ×4 (08:25→21:50)
[2023-04-16] MEDS: BUDESONIDE 1 MG/2 ML NEBU INHALATION SCH ×2 (08:26→21:50)
[2023-04-16] MEDS: FORMOTEROL FUMARATE 20 MCG/2 ML NEBU INHALATION SCH ×2 (08:26→21:50)
[2023-04-16 09:17] LABS: Basophils # (A) 0.08 X 10*3/uL (0.00-0.10); Basophils % (A) 0.5 %; Eosinophils # (A) 0 X 10*3/uL (0.04-0.35); Eosinophils % (A) 0 %; HCT 35.4 % (37.2-46.3); HGB 11.9 g/dL (12.0-15.0); Lymphocytes # (A) 2.05 X 10*3/uL (0.90-5.00); Lymphocytes % (A) 11.9 %; MCH 30.4 pg (27.0-32.0); MCHC 33.6 g/dL (32.0-37.0); MCV 90.3 FL (80.0-97.0); Mean Platelet Volume 9.6 FL (9.5-12.2); Monocytes # (A) 0.61 X 10*3/uL (0.20-1.00); Monocytes % (A) 3.5 %; NRBC Per 100 WBC 0 X 10*3/uL (0.00-0.01); Neutrophils # (A) 14.02 X 10*3/uL (1.80-7.70); Neutrophils % (A) 81.1 %; Platelet Count 310 X 10*3/uL (140-440); RBC 3.92 X 10*6/uL (4.10-5.20); RDW 12.9 % (11.5-14.5); WBC 17.28 X 10*3/uL (4.50-10.00)
[2023-04-16 09:37] LABS: BUN/Creat Ratio 21.62 Ratio (12.00-20.00); Blood Urea Nitrogen 17.3 mg/dL (9.0-27.0); Glucose 173 mg/dL (70-110)
[2023-04-16 09:38] LABS: Calcium 8.6 mg/dL (8.7-10.3); Carbon Dioxide 23.5 mmol/L (21.6-31.8); Chloride 103 mmol/L (96-109); Potassium 4.6 mmol/L (3.5-5.5); Sodium 139 mmol/L (135-145)
[2023-04-16] MEDS: MAG HYDROX/AL HYDROX/SIMETH 30 ML CUP PO SCH ×4 (09:42→19:55)
[2023-04-16] MEDS: NYSTATIN 100,000 UNIT/ML SUSP 500,000 UNIT/5 ML CUP PO SCH ×4 (09:43→19:55)
[2023-04-16] MEDS: BENZONATATE 100 MG CAP PO SCH ×3 (09:44→19:54)
[2023-04-16] MEDS: ENOXAPARIN 40 MG/0.4 ML SYRINGE SQ SCH (09:44)
[2023-04-16] MEDS: LORATADINE 10 MG TAB PO SCH (09:45)
[2023-04-16] MEDS: polyethylene glycoL 3350 17 GM POWD.PACK PO SCH ×2 (09:47→14:01)
[2023-04-16] MEDS: FLUTICASONE 50MCG/SPRAY NASAL 16GM EA NOSTRIL SCH (09:47)
[2023-04-16] MEDS: SERTRALINE 50 MG TAB PO SCH (09:48)
[2023-04-16] MEDS: CIPROFLOXACIN-DEXAMETH 0.3-0.1% DROPS 7.5 ML BTL BOTH EARS SCH ×2 (09:50→19:55)
[2023-04-16 11:04] LABS: Nucleated Cells, Body Fluid 250 /UL
[2023-04-16 11:07] LABS: Nucleated Cells, Body Fluid 1000 /UL
--- NOTE | 2023-04-16 11:09 | P.PN ---
Subjective Progress Note Date: 04/16/23 I am seeing this patient in new consultation today 04/10/2023 in the emergency room after she presented with chief complaint of shortness of breath, cough, fever over the last 2 days. Patient is a 43-year-old white female with past medical history significant for chronic bronchitis, chronic ongoing tobacco dependence, GERD, gastroparesis, rheumatoid arthritis, anxiety, among other things. Her primary care provider is Dr. Snow. Patient states that she has "seasonal bronchitis". She smokes approximately one quarter pack per day, down from 1 pack per day previously. She states that she has quit multiple times in the past, but has restarted within the last year. She states that Chantix has worked best in the past. She reportedly tested positive for COVID-19 back in February of this year. Since then, she has had multiple bouts of bronchitis- like symptoms. She's had shortness of breath, dry cough, intermittent fever, wheezing, and chest tightness. She states that she did have a nebulizer at home but did not have any medication for it. She has a when necessary albuterol rescue inhaler which she has been using frequently. She's been treated on 2 separate occasions at urgent care clinic with steroids and antibiotics. States that she initially improves, but worsens after she is tapered off her steroids. Her shortness of breath worsened over the last 2 days, and she came to the em ergency room. She still has a dry persistent cough, and her chest is sore with coughing. She was febrile on arrival with a T-max of 100.9F. Chest x-ray did not show any acute infiltrates or evidence of pneumonia. She was negative for influenza, RSV, COVID-19. CBC was unremarkable. No leukocytosis. She is currently sitting up in bed, on room air. SpO2 is 95%. She is in no acute respiratory distress. She's had multiple DuoNeb treatments. She still has an end expiratory wheeze. Vital signs are stable. The patient is seen today 04/11/2023 follow-up on the regular medical floor. She is awake and alert in no acute distress. She continues with a hoarse voice, dry nonproductive cough. Still somewhat bronchospastic and wheezing but better today compared to yesterday. Maintaining O2 saturations in the 90s on room air. Pro calcitonin was 0.07. Sodium 140. Potassium 4.4. Bicarb 21. BUN 11. Creatinine 0.8. Glucose 168. He is continued on Pulmicort and Perforomist, DuoNeb inhalations, Solu-Medrol. She is still having issues with acid reflux despite being on Protonix 40 mg twice a day. The patient is seen today 04/12/2023 in follow-up on the regular medical floor. She is sitting up in bed. Awake and alert in no acute distress. She continues with a dry productive cough. Sputum culture pending. She is maintaining O2 saturations in the 90s on room air. She's afebrile. Hemodynamically stable. She is continued on DuoNeb inhalations, Pulmicort and Perforomist inhalations, Solu-Medrol. Tessalon Perles and Robitussin for her cough. Remains on Protonix twice daily for her acid reflux. The patient is seen today 04/13/2023 in follow-up on the regular medical floor. She is resting fairly comfortably in bed. Awake and alert in no acute distress. She did have a temperature 103.1 earlier. Currently 99.0. She is less bronchospastic and wheezy. Continues with a dry nonproductive cough. She is continued on DuoNeb inhalations, Pulmicort and Perforomist inhalations, Solu- Medrol. Tessalon Perles and Robitussin for her cough. Protonix twice daily for her acid reflux. The patient is seen today 04/14/2023 in follow-up on the regular medical floor. She is sitting up in bed. Awake and alert in no acute distress. Still having shortness of breath, cough and congestion. Chest x-ray is now showing a right lower lobe infiltrate. Sputum culture revealed no growth. Urine legionella antigen screen negative. White count 10.3. Hemoglobin 12.6. Platelets 272. Sodium 139. Potassium 4.4. Bicarb 26. BUN 15. Creatinine 0.7. Glucose 105. He is continued on ceftriaxone and azithromycin. Remains on DuoNeb inhalations, Pulmicort and Perforomist inhalations, IV Solu-Medrol. Lovenox for DVT prophylaxis. The patient is seen today 04/15/2023 in follow-up on the regular medical floor. She is resting comfortably in bed. Awake and alert in no acute distress. She has been slow to progress. Still with a loose cough. Shortness of breath with exertion. Shortness of breath with conversation. CT angiogram doubt pulmonary embolism. There is noted consolidative opacity in the posterior right middle lobe plus numerous additional small patchy and nodular foci of consolidative opacity in the small amounts of surrounding ground glass attenuation throughout the lobes bilaterally. Likely representing infectious/inflammatory process. Plan is for bronchoscopy with BAL and biopsies today. Sputum culture revealed no growth. Blood cultures revealing no growth. Urine hCG negative. She remains on antibiotics in the form of ceftriaxone. Continued on DuoNeb inhalations, Pulmicort and Perforomist inhalations, Solu-Medrol, Tessalon Perles. She is on both Protonix and Pepcid for her uncontrolled GERD. The patient is today 04/16/2023 in follow-up on the regular medical floor. She is currently sitting up in bed. Awake and alert in no acute distress. Maintaining O2 saturations in the 90s on 2 L/m per nasal cannula. She did undergo bronchoscopy with BAL and biopsies of both the right middle and right lower lobes. She tolerated the procedure well. Follow up chest x-ray revealed right lower lobe infiltrate. No evidence of pneumothorax. Bronchial cultures are pending, cytology pending. Initial sputum culture had revealed no growth. White count 17.2. Hemoglobin 11.9. Platelets 310. Sodium 139. Potassium 4.6. Bicarb 24. BUN 17. Creatinine 0.8. Glucose 173. She is continued on DuoNeb inhalations, Pulmicort and Perforomist inhalations, Solu-Medrol. Remains on antibiotics in the form of ceftriaxone. Completed azithromycin. Utilizing Tessalon Perles and Robitussin for her cough. Objective - Vital Signs Vital signs: Vital Signs Temp 98 F 04/16/23 07:30 Pulse 77 04/16/23 10:08 Resp 20 04/16/23 09:00 BP 147/80 04/16/23 10:08 Pulse Ox 99 04/16/23 07:30 FiO2 21 04/11/23 08:09 Intake & Output 04/15/23 04/16/23 04/16/23 18:59 06:59 18:59 Intake Total 300 118 Balance 300 118 Intake: IV 300 Oral 118 Other: Voiding Method Toilet Toilet Toilet # Voids 2 2 # Bowel Movements 1 - Exam GENERAL EXAM: Alert, pleasant 43-year-old female, been up in bed, on 2 L nasal cannula, in no apparent distress. HEAD: Normocephalic and atraumatic EYES: Normal reaction of pupils, equal size. NOSE: Clear with pink turbinates. THROAT: No erythema or exudates. NECK: No masses, no JVD. CHEST: No chest wall deformity. LUNGS: Equal air entry with end expiratory wheezes. Few scattered rhonchi. Persistent cough. CVS: S1 and S2 normal with no audible murmur, regular rhythm. No extra heart sounds ABDOMEN: No hepatosplenomegaly, active bowel sounds, no guarding or rigidity. SPINE: No scoliosis or deformity SKIN: No rashes CENTRAL NERVOUS SYSTEM: No focal deficits, tone is normal in all 4 extremities. EXTREMITIES: There is no peripheral edema, clubbing, or cyanosis. Peripheral pulses are intact. - Labs CBC & Chem 7: 04/16/23 05:27 04/16/23 05:27 Labs: Abnormal Lab Results - Last 24 Hours (Table) 04/13/23 04/15/23 04/15/23 Range/Units 12:47 14:00 14:04 WBC (4.50-10.00) X 10*3/uL RBC (4.10-5.20) X 10*6/uL Hgb (12.0-15.0) g/dL Hct (37.2-46.3) % Immature Gran # (0.00-0.04) X 10*3/uL Neutrophils # (1.80-7.70) X 10*3/uL Eosinophils # (0.04-0.35) X 10*3/uL Anion Gap (4.00-12.00) mmol/L BUN/Creatinine Ratio (12.00-20.00) Ratio Glucose (70-110) mg/dL Calcium (8.7-10.3) mg/dL Fluid Appearance Bloody A Bloody A (Clear) Mycoplasma pneumon IgG 1.29 H (<=0.90) INDEX 04/16/23 04/16/23 Range/Units 05:27 05:27 WBC 17.28 H (4.50-10.00) X 10*3/uL RBC 3.92 L (4.10-5.20) X 10*6/uL Hgb 11.9 L (12.0-15.0) g/dL Hct 35.4 L (37.2-46.3) % Immature Gran # 0.52 H (0.00-0.04) X 10*3/uL Neutrophils # 14.02 H (1.80-7.70) X 10*3/uL Eosinophils # 0 L (0.04-0.35) X 10*3/uL Anion Gap 12.50 H (4.00-12.00) mmol/L BUN/Creatinine Ratio 21.62 H (12.00-20.00) Ratio Glucose 173 H (70-110) mg/dL Calcium 8.6 L (8.7-10.3) mg/dL Fluid Appearance (Clear) Mycoplasma pneumon IgG (<=0.90) INDEX Microbiology - Last 24 Hours (Table) 04/15/23 14:00 Gram Stain - Preliminary Bronchoalviolar Lavage - Right 04/15/23 14:04 Gram Stain - Preliminary Bronchoalviolar Lavage - Right 04/13/23 12:46 Blood Culture - Preliminary Blood Assessment and Plan Assessment: Suspect acute bronchitis, initial chest x-ray showed no acute infiltrates or evidence of pneumonia. Pro-calcitonin negative. Follow up chest x-ray showing some right lower lobe opacity. CT angiogram doubt pulmonary embolism. There is noted consolidative opacity in the posterior right middle lobe plus numerous additional small patchy and nodular foci of consolidative opacity in the small amounts of surrounding ground glass attenuation throughout the lobes bilaterally . Likely representing infectious/inflammatory process. Bronchoscopy with BAL and biopsies formed yesterday 04/15/2023. Cultures and cytology pending. Remains on ceftriaxone. History of chronic bronchitis Chronic ongoing tobacco dependence History of GERD History of gastroparesis Anxiety disorder Fibromyalgia Obesity, with a BMI of 38.4 kg/m Plan: The patient was seen and evaluated Chest x-ray, labs and medications reviewed Bronchoscopies with biopsies performed yesterday Cultures and cytology pending Continue on ceftriaxone Continue bronchodilators, steroids Titrate down the FiO2 as tolerated Increase her activity as tolerated We will continue to follow This patient was seen independently by the nurse practitioner I have personally seen and examined the patient, performed the documentation and the assessment and plan as written. Number of minutes spent on the visit: 22.
[2023-04-16] MEDS ORDERED: TEMAZEPAM 7.5 MG CAP PO PRN (11:32)
[2023-04-16] MEDS: ALPRAZolam 1 MG TAB PO PRN ×2 (12:51→21:54)
[2023-04-16] MEDS: FAMOTIDINE 20 MG TAB PO SCH (19:55)
--- NOTE | 2023-04-16 20:37 | P.PN ---
Subjective Patient given with comments of shortness of breath does smoke half a pack of cigarettes a day trying to quit smoking. Patient does have history of seasonal bronchitis and seasonal asthma. Patient has been coughing unable to bring up anything chest x-ray did not show any pneumonia, patient is negative for COVID- 19, RSV and influenza. Patient does have leukocytosis. Patient was given steroids and antibiotic in urgent care clinic. Patient was having a dry cough with some chest tightness and wheezing 04/11/2023 Patient evaluated today resting in bed Continues with significant shortness of breath bronchospastic cough. Patient remains on high dose solumedrol IV. Remains on 2L of oxygen. Procalcitonin level 0.07 no need for antibiotics at this time. Patient states at this time her acid reflux is under control she is on regimen of protonix pepcid and maalox was added. Needs to follow up with GI who is not on staff until Friday. 04/12/2023 Patient is evaluated today resting in bed. She does continue significant shortness of breath and anxiety. She remains on high dose of IV Solu-Medrol her tongue also has evidence of white coating and we will treat for oral thrush with the addition of nystatin. She is placed on oral azithromycin by pulmonary services. Patient does complain of sinus congestion and fullness and has been started on Claritin and Flonase and will give naproxen for the headache. She continues also on a regimen of Protonix Pepcid and Maalox is not reporting any worsening reflux symptoms. She has been weaned to room air. 04/13/2023 Patient evaluated today sitting up in bed with family at bedside. Did report ear fullness which she does have erythema and bulging disc on the left. She continues to have bronchospastic cough with lobo sputum. She has pain when coughing and tearful. 04/14/2023 Patient evaluated today sitting up in bed. Has not been able to tolerate much activity. Currently on 2L of oxygen. Patient has been maintained on high dose steroids, as well as PO azithromycin and IV ceftriaxone has been added as well. Patient has had negative viral panel, we are pending mycoplasma, the legionella antigen comes back negative. proBNP of 116. Her D Dimer does come back elevated today at 1.[address] angiography showing no acute pulmonary embolism. There is consolidative opacity in the posterior right middle lobe, plus numerous additional small patchy and nodular foci of consolidative opacity with small amounts of surrounding groundglass attenuation throughout all lobes bilaterally. This likely represents infectious/inflammatory process. Recommending clinical correlation. 04/15/2023 Patient is evaluated today on the medical floor. Remains on room air to 2L of oxygen. Continues on IV steroids, inhaled steroids. Also on nystatin. Patient continues to report significant shortness of breath and harsh bronchospastic cough. She is fatigued. Had a chest xray today showing stable right lower lobe pneumonia. Did have an elevated D Dimer of 1.97. Chest CTA negative for pulmonary embolism, there is consolidative opacity in the posterior right middle lobe, plus numerous additional small patchy and nodular foci of consolidative opacity with small amounts of groundglass attentuation throughout all lobes bilaterally. This very likely represents infectious/inflammatory process. Patient will be bronched tomorrow. Patient was re-evaluated today and pending bronchoscopy. Patient continued on IV ceftriaxone, IV steroids. She is on 2L of oxygen. 04/16/2023 patient still complaining of from dyspnea especially with exertion She still have significant coughing No chest pain She is currently on 2 L oxygen via nasal cannula She status post bronchoscopy with bronchoalveolar lavage yesterday showing purulent thick material with diffuse erythema of the airway status post multiple biopsies. Postprocedure patient feels better. Fluid cytology and the bronchial biopsies are still pending Blood culture are still pending Patient remains on Rocephin and Solu-Medrol 60 mg Complaining of from insomnia, Restoril 7.5 increased to 15 mg at bedtime when necessary today Objective - Vital Signs Vital signs: Vital Signs Temp 98 F 04/16/23 07:30 Pulse 77 04/16/23 10:08 Resp 20 04/16/23 09:00 BP 147/80 04/16/23 10:08 Pulse Ox 99 04/16/23 07:30 FiO2 21 04/11/23 08:09 Intake & Output 04/15/23 04/16/23 04/16/23 18:59 06:59 18:59 Intake Total 300 118 Balance 300 118 Intake: IV 300 Oral 118 Other: Voiding Method Toilet Toilet Toilet # Voids 2 2 # Bowel Movements 1 - Exam GENERAL: The patient is alert and oriented x3, not in any acute distress. Well developed, well nourished. HEENT: Pupils are round and equally reacting to light. EOMI. No scleral icterus. No conjunctival pallor. Normocephalic, atraumatic. No pharyngeal erythema. No thyromegaly. CARDIOVASCULAR: S1 and S2 present. No murmurs, rubs, or gallops. PULMONARY: Faint scattered wheezing ABDOMEN: Soft, nontender, nondistended, normoactive bowel sounds. No palpable organomegaly. MUSCULOSKELETAL: No joint swelling or deformity. EXTREMITIES: No cyanosis, clubbing, or pedal edema. NEUROLOGICAL: Gross neurological examination did not reveal any focal deficits. SKIN: No rashes. - Labs CBC & Chem 7: 04/16/23 05:27 04/16/23 05:27 Labs: Abnormal Lab Results - Last 24 Hours (Table) 04/13/23 04/15/23 04/15/23 Range/Units 12:47 14:00 14:04 WBC (4.50-10.00) X 10*3/uL RBC (4.10-5.20) X 10*6/uL Hgb (12.0-15.0) g/dL Hct (37.2-46.3) % Immature Gran # (0.00-0.04) X 10*3/uL Neutrophils # (1.80-7.70) X 10*3/uL Eosinophils # (0.04-0.35) X 10*3/uL Anion Gap (4.00-12.00) mmol/L BUN/Creatinine Ratio (12.00-20.00) Ratio Glucose (70-110) mg/dL Calcium (8.7-10.3) mg/dL Fluid Appearance Bloody A Bloody A (Clear) Fluid RBC 63641 H 506592 H (0-2000) /uL Mycoplasma pneumon IgG 1.29 H (<=0.90) INDEX 04/16/23 04/16/23 Range/Units 05:27 05:27 WBC 17.28 H (4.50-10.00) X 10*3/uL RBC 3.92 L (4.10-5.20) X 10*6/uL Hgb 11.9 L (12.0-15.0) g/dL Hct 35.4 L (37.2-46.3) % Immature Gran # 0.52 H (0.00-0.04) X 10*3/uL Neutrophils # 14.02 H (1.80-7.70) X 10*3/uL Eosinophils # 0 L (0.04-0.35) X 10*3/uL Anion Gap 12.50 H (4.00-12.00) mmol/L BUN/Creatinine Ratio 21.62 H (12.00-20.00) Ratio Glucose 173 H (70-110) mg/dL Calcium 8.6 L (8.7-10.3) mg/dL Fluid Appearance (Clear) Fluid RBC (0-2000) /uL Mycoplasma pneumon IgG (<=0.90) INDEX Microbiology - Last 24 Hours (Table) 04/15/23 14:04 Gram Stain - Preliminary Bronchoalviolar Lavage - Right 04/15/23 14:00 Gram Stain - Preliminary Bronchoalviolar Lavage - Right 04/13/23 12:46 Blood Culture - Preliminary Blood Assessment and Plan Assessment: -Bronchitis, possible COPD exacerbation: Procalcitonin level WNL patient has interval development of fever and will recommend to add IV ceftriaxone with oral azithromycin. Sputum sample is pending. Patient continues on supportive care. Patient continues on IV steroids and inhaled steroids, bronchodilators. Patient status post bronchoscopy on 04/15. Fluid cytology at transbronchial biopsies are pending -Right lower lobe pneumonia likely community acquired on IV antibiotics. -Otitis media with evidence of erythema and bulging of the ear drum bilaterally greater on the left patient is now on ciprodex gtts. -Oral thrush started on nystatin swish and swallow -Elevated D-Dimer with CTA negative for pulmonary embolism. -Nicotine use: Counseling was provided -Gastroesophageal reflux disease Continues on combination of protonix, pepcid and maalox and recommend follow up with GI does not need to be during this hospital stay. -Hx of narcolepsy -Hx of gastroparesis -anxiety disorder -Obesity -Chronic and ongoing nicotine use -Fever secondary to bronchitis DVT prophylaxis: Early ablation
[2023-04-17] MEDS: methylPREDNISolone SOD SUCCI 125 MG/2 ML VIAL IV SCH (06:18)
[2023-04-17] MEDS: KETOROLAC 15 MG/ML 1 ML VIAL IVP SCH ×2 (06:18→12:46)
[2023-04-17] MEDS: PANTOPRAZOLE 40 MG TABLET PO SCH (06:19)
[2023-04-17 07:27] VITALS: RESP 18
[2023-04-17] MEDS ORDERED: SYMBICORT 160-4.5 MCG INHALER INHALATION SCH (08:00)
[2023-04-17] MEDS: IPRATROPIUM-ALBUTEROL 3 ML NEB INHALATION SCH ×3 (08:06→15:47)
[2023-04-17] MEDS ORDERED: predniSONE 20 MG TAB PO SCH (09:00)
[2023-04-17] MEDS: SERTRALINE 50 MG TAB PO SCH (09:33)
[2023-04-17] MEDS: ENOXAPARIN 40 MG/0.4 ML SYRINGE SQ SCH (09:33)
[2023-04-17] MEDS: polyethylene glycoL 3350 17 GM POWD.PACK PO SCH (09:33)
[2023-04-17] MEDS: LORATADINE 10 MG TAB PO SCH (09:33)
[2023-04-17] MEDS: FLUTICASONE 50MCG/SPRAY NASAL 16GM EA NOSTRIL SCH (09:34)
[2023-04-17] MEDS: BENZONATATE 100 MG CAP PO SCH (09:34)
[2023-04-17] MEDS: NYSTATIN 100,000 UNIT/ML SUSP 500,000 UNIT/5 ML CUP PO SCH ×2 (09:35→12:50)
[2023-04-17] MEDS: CIPROFLOXACIN-DEXAMETH 0.3-0.1% DROPS 7.5 ML BTL BOTH EARS SCH (09:35)
[2023-04-17] MEDS: MAG HYDROX/AL HYDROX/SIMETH 30 ML CUP PO SCH ×2 (09:35→12:50)
[2023-04-17 12:13] VITALS: BMI 38.4
[2023-04-17] MEDS: ALPRAZolam 1 MG TAB PO PRN (12:54)
--- NOTE | 2023-04-17 14:12 | P.PN ---
Subjective Progress Note Date: 04/17/23 I am seeing this patient in new consultation today 04/10/2023 in the emergency room after she presented with chief complaint of shortness of breath, cough, fever over the last 2 days. Patient is a 43-year-old white female with past medical history significant for chronic bronchitis, chronic ongoing tobacco dependence, GERD, gastroparesis, rheumatoid arthritis, anxiety, among other things. Her primary care provider is Dr. Snow. Patient states that she has "seasonal bronchitis". She smokes approximately one quarter pack per day, down from 1 pack per day previously. She states that she has quit multiple times in the past, but has restarted within the last year. She states that Chantix has worked best in the past. She reportedly tested positive for COVID-19 back in February of this year. Since then, she has had multiple bouts of bronchitis- like symptoms. She's had shortness of breath, dry cough, intermittent fever, wheezing, and chest tightness. She states that she did have a nebulizer at home but did not have any medication for it. She has a when necessary albuterol rescue inhaler which she has been using frequently. She's been treated on 2 separate occasions at urgent care clinic with steroids and antibiotics. States that she initially improves, but worsens after she is tapered off her steroids. Her shortness of breath worsened over the last 2 days, and she came to the em ergency room. She still has a dry persistent cough, and her chest is sore with coughing. She was febrile on arrival with a T-max of 100.9F. Chest x-ray did not show any acute infiltrates or evidence of pneumonia. She was negative for influenza, RSV, COVID-19. CBC was unremarkable. No leukocytosis. She is currently sitting up in bed, on room air. SpO2 is 95%. She is in no acute respiratory distress. She's had multiple DuoNeb treatments. She still has an end expiratory wheeze. Vital signs are stable. The patient is seen today 04/11/2023 follow-up on the regular medical floor. She is awake and alert in no acute distress. She continues with a hoarse voice, dry nonproductive cough. Still somewhat bronchospastic and wheezing but better today compared to yesterday. Maintaining O2 saturations in the 90s on room air. Pro calcitonin was 0.07. Sodium 140. Potassium 4.4. Bicarb 21. BUN 11. Creatinine 0.8. Glucose 168. He is continued on Pulmicort and Perforomist, DuoNeb inhalations, Solu-Medrol. She is still having issues with acid reflux despite being on Protonix 40 mg twice a day. The patient is seen today 04/12/2023 in follow-up on the regular medical floor. She is sitting up in bed. Awake and alert in no acute distress. She continues with a dry productive cough. Sputum culture pending. She is maintaining O2 saturations in the 90s on room air. She's afebrile. Hemodynamically stable. She is continued on DuoNeb inhalations, Pulmicort and Perforomist inhalations, Solu-Medrol. Tessalon Perles and Robitussin for her cough. Remains on Protonix twice daily for her acid reflux. The patient is seen today 04/13/2023 in follow-up on the regular medical floor. She is resting fairly comfortably in bed. Awake and alert in no acute distress. She did have a temperature 103.1 earlier. Currently 99.0. She is less bronchospastic and wheezy. Continues with a dry nonproductive cough. She is continued on DuoNeb inhalations, Pulmicort and Perforomist inhalations, Solu- Medrol. Tessalon Perles and Robitussin for her cough. Protonix twice daily for her acid reflux. The patient is seen today 04/14/2023 in follow-up on the regular medical floor. She is sitting up in bed. Awake and alert in no acute distress. Still having shortness of breath, cough and congestion. Chest x-ray is now showing a right lower lobe infiltrate. Sputum culture revealed no growth. Urine legionella antigen screen negative. White count 10.3. Hemoglobin 12.6. Platelets 272. Sodium 139. Potassium 4.4. Bicarb 26. BUN 15. Creatinine 0.7. Glucose 105. He is continued on ceftriaxone and azithromycin. Remains on DuoNeb inhalations, Pulmicort and Perforomist inhalations, IV Solu-Medrol. Lovenox for DVT prophylaxis. The patient is seen today 04/15/2023 in follow-up on the regular medical floor. She is resting comfortably in bed. Awake and alert in no acute distress. She has been slow to progress. Still with a loose cough. Shortness of breath with exertion. Shortness of breath with conversation. CT angiogram doubt pulmonary embolism. There is noted consolidative opacity in the posterior right middle lobe plus numerous additional small patchy and nodular foci of consolidative opacity in the small amounts of surrounding ground glass attenuation throughout the lobes bilaterally. Likely representing infectious/inflammatory process. Plan is for bronchoscopy with BAL and biopsies today. Sputum culture revealed no growth. Blood cultures revealing no growth. Urine hCG negative. She remains on antibiotics in the form of ceftriaxone. Continued on DuoNeb inhalations, Pulmicort and Perforomist inhalations, Solu-Medrol, Tessalon Perles. She is on both Protonix and Pepcid for her uncontrolled GERD. The patient is today 04/16/2023 in follow-up on the regular medical floor. She is currently sitting up in bed. Awake and alert in no acute distress. Maintaining O2 saturations in the 90s on 2 L/m per nasal cannula. She did undergo bronchoscopy with BAL and biopsies of both the right middle and right lower lobes. She tolerated the procedure well. Follow up chest x-ray revealed right lower lobe infiltrate. No evidence of pneumothorax. Bronchial cultures are pending, cytology pending. Initial sputum culture had revealed no growth. White count 17.2. Hemoglobin 11.9. Platelets 310. Sodium 139. Potassium 4.6. Bicarb 24. BUN 17. Creatinine 0.8. Glucose 173. She is continued on DuoNeb inhalations, Pulmicort and Perforomist inhalations, Solu-Medrol. Remains on antibiotics in the form of ceftriaxone. Completed azithromycin. Utilizing Tessalon Perles and Robitussin for her cough. The patient is seen today 04/17/2023 in follow-up on the regular medical floor. She is resting in bed. Awake and alert in no acute distress. Bronchiolar lavage revealed no bacterial growth. No acid-fast bacilli. Viral screen was p ositive for adenovirus. Remains on DuoNeb inhalations, Symbicort, prednisone. Lovenox for DVT prophylaxis. Robitussin and Tessalon Perles for her cough. Completed antibiotics. Objective - Vital Signs Vital signs: Vital Signs Temp 97.9 F 04/17/23 07:20 Pulse 78 04/17/23 11:51 Resp 18 04/17/23 07:20 BP 145/81 04/17/23 07:20 Pulse Ox 96 04/17/23 08:22 FiO2 21 04/11/23 08:09 Intake & Output 04/16/23 04/17/23 04/17/23 18:59 06:59 18:59 Intake Total 358 120 Balance 358 120 Weight 95.254 kg Intake: Oral 358 120 Other: Voiding Method Toilet Toilet # Voids 1 2 1 - Exam GENERAL EXAM: Alert, pleasant 43-year-old female, on room air, in no apparent distress. HEAD: Normocephalic and atraumatic EYES: Normal reaction of pupils, equal size. NOSE: Clear with pink turbinates. THROAT: No erythema or exudates. NECK: No masses, no JVD. CHEST: No chest wall deformity. LUNGS: Equal air entry with no rhonchi, wheeze or crackles. CVS: S1 and S2 normal with no audible murmur, regular rhythm. No extra heart sounds ABDOMEN: No hepatosplenomegaly, active bowel sounds, no guarding or rigidity. SPINE: No scoliosis or deformity SKIN: No rashes CENTRAL NERVOUS SYSTEM: No focal deficits, tone is normal in all 4 extremities. EXTREMITIES: There is no peripheral edema, clubbing, or cyanosis. Peripheral pulses are intact. - Labs CBC & Chem 7: 04/16/23 05:27 04/16/23 05:27 Labs: Abnormal Lab Results - Last 24 Hours (Table) 04/15/23 04/15/23 Range/Units 14:00 14:04 Adenovirus (PCR) DETECTED A DETECTED A (Not detected) Microbiology - Last 24 Hours (Table) 04/15/23 14:00 Gram Stain - Preliminary Bronchoalviolar Lavage - Right Bronchial Washings Culture - Preliminary 04/13/23 12:46 Blood Culture - Preliminary Blood 04/15/23 14:04 Acid Fast Bacilli Smear - Preliminary Bronchoalviolar Lavage - Right 04/15/23 14:00 Acid Fast Bacilli Smear - Preliminary Bronchoalviolar Lavage - Right 04/15/23 14:04 Gram Stain - Preliminary Bronchoalviolar Lavage - Right Assessment and Plan Assessment: Suspect acute bronchitis, initial chest x-ray showed no acute infiltrates or evidence of pneumonia. Pro-calcitonin negative. Follow up chest x-ray showing some right lower lobe opacity. CT angiogram ruled out pulmonary embolism. There is noted consolidative opacity in the posterior right middle lobe plus numerous additional small patchy and nodular foci of consolidative opacity in the small amounts of surrounding ground glass attenuation throughout the lobes bilaterally. Likely representing infectious/inflammatory process. Bronchoscopy with BAL and biopsies performed 04/15/2023. Cultures thus far revealing no growth. Viral screen with adenovirus. Completed antibiotics. History of chronic bronchitis Chronic ongoing tobacco dependence History of GERD History of gastroparesis Anxiety disorder Fibromyalgia Obesity, with a BMI of 38.4 kg/m Plan: The patient was seen and evaluated Medications reviewed Bronchoscopy cultures reveal no growth Completed antibiotics Continue bronchodilators, prednisone taper To follow-up in our office in [address] Joe This patient was seen independently by the nurse practitioner I have personally seen and examined the patient, performed the documentation and the assessment and plan as written. Number of minutes spent on the visit: 23.
[2023-04-17 14:18] VITALS: BP 139/81; PULSE 70; TEMP 97.7
--- NOTE | 2023-04-17 22:17 | P.DS ---
Providers Date of admission: 04/11/23 13:59 Attending physician: Chris Morrissey Consults: 04/09/23 23:45 Consult Physician Urgent Consulting Provider: Christian Joe Consult Reason/Comments: reactive airway Do you want consulting provider notified?: Yes, Notify in am Primary care physician: [facility] Course: Diagnoses: -Acute Bronchitis. Patient status post bronchoscopy and bronchoalveolar lavage on 04/15. Fluid cytology at transbronchial biopsies are pending. Patient's symptoms improved and she finish her course of antibiotics. Patient will be discharged on tapered to steroids/prednisone -Right lower lobe pneumonia likely community acquired. Improving and patient finish her course of IV antibiotics. -Otitis media with evidence of erythema and bulging of the ear drum bilaterally greater on the left patient is now on ciprodex gtts. Finish antibiotic course -Oral thrush started on nystatin swish and swallow -Elevated D-Dimer with CTA negative for pulmonary embolism. -Nicotine use: Counseling was provided -Gastroesophageal reflux disease Continues on combination of protonix, pepcid and maalox, improved. Follow-up outpatient -Hx of narcolepsy -Hx of gastroparesis -anxiety disorder -Obesity -Chronic and ongoing nicotine use -Fever secondary to bronchitis Hospital course: This is a pleasant 43 years old female with multiple medical problems presents with respiratory symptoms suspected to right lower lobe pneumonia and no nodularity, or extra report cancer cannot be excluded however her age is atypical. Patient was found to have acute bronchitis and she was treated with IV steroids and ceftriaxone and she showed interval improvement, on 04/15 she underwent bronchoscopy and BAL showing thick purulent discharge and airway erythema. Her symptoms improved significantly with the treatment and patient back close to her baseline. Today patient was cleared for discharge by pulmonary service per my discussion with Dr. Day. Patient still has fluid cytology and transbronchial biopsies are pending, patient unaware and risk of cancer explained for her and she agrees to follow-up outpatient with Dr. Ring on her appointment date 05/09. Also she was evaluated by GI service and recommended discharge on Pepcid and omeprazole twice daily which was sent to the pharmacy. Patient was instructed to follow up with just a persistent outpatient in 2-3 weeks. She agrees as well. Patient denies any other new complaint. Patient was cleared for discharge by GI and pulmonary service Problems and management plan were discussed with the patient and he verbalized understanding and acceptance Patient was found stable and can be discharged home in guarded prognosis however he needs follow-up as an outpatient. Patient was instructed to follow up with PCP Dr. Snow within one week and patient agrees. I called her PCP Dr. Fitzpatrick discussed the case with him including pending cytology and bronchial biopsy and he kindly took note of this and they will contact the patient for follow-up within 1 week. 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 Ring on 05/09 and she agrees and she told me she will follow up Physical exam Gen: patient is a AAOx3, no distress CVS: S1-S2, RRR, no murmur Lungs: B/L CTA, no wheezing Abdomen: soft, no distention, no tenderness, positive bowel sounds Extremity: no leg edema or induration Time spent more than 35 minutes Patient Condition at Discharge: Fair Plan - Discharge Summary Discharge Rx Participant: Yes New Discharge Prescriptions: New Omeprazole 40 mg PO AC-BID #60 cap Fluticasone Nasal Agra [Flonase Nasal Agra] 2 spray EA NOSTRIL DAILY #30 ml Nystatin 100,000 Unit/ml Susp [Mycostatin Oral Susp] 500,000 unit PO QID 3 Days #60 ml predniSONE 10 mg PO DIRECTED #40 tab Benzonatate [Tessalon Perles] 200 mg PO TID 7 Days #21 cap Famotidine [Pepcid] 20 mg PO HS tab Ciprofloxacin-Dexameth [Ciprodex Otic Susp] 4 drops BOTH EARS BID 3 Days #10 ml Loratadine [Claritin] 5 mg PO DAILY 7 Days #7 tab Continue ALPRAZolam [Xanax] 2 mg PO BID PRN PRN Reason: Anxiety Promethazine/Dextromethorphan [Promethazine-Dm 6.25-15 mg/5Ml] 5 ml PO Q4HR PRN PRN Reason: Cold Symptoms predniSONE 50 mg PO DAILY Albuterol Inhaler [Ventolin Hfa Inhaler] 2 puff INHALATION RT-Q6H PRN #1 each PRN Reason: Shortness Of Breath Sertraline [Zoloft] 150 mg PO DAILY Albuterol Nebulized [Ventolin Nebulized] 2.5 mg INHALATION RT-Q4H PRN 30 Days #100 ml PRN Reason: Shortness Of Breath Discontinued Omeprazole [PriLOSEC] 20 mg PO BID Doxycycline Hyclate 100 mg PO BID Discharge Medication List ALPRAZolam [Xanax] 2 mg PO BID PRN 09/02/13 [History] Promethazine/Dextromethorphan [Promethazine-Dm 6.25-15 mg/5Ml] 5 ml PO Q4HR PRN 04/09/23 [History] Sertraline [Zoloft] 150 mg PO DAILY 04/09/23 [History] predniSONE 50 mg PO DAILY 04/09/23 [History] Famotidine [Pepcid] 20 mg PO HS tab 04/15/23 [Rx] Omeprazole 40 mg PO AC-BID #60 cap 04/15/23 [Rx] Albuterol Inhaler [Ventolin Hfa Inhaler] 2 puff INHALATION RT-Q6H PRN #1 each 04/17/23 [Rx] Albuterol Nebulized [Ventolin Nebulized] 2.5 mg INHALATION RT-Q4H PRN 30 Days #100 ml 04/17/23 [Rx] Benzonatate [Tessalon Perles] 200 mg PO TID 7 Days #21 cap 04/17/23 [Rx] Ciprofloxacin-Dexameth [Ciprodex Otic Susp] 4 drops BOTH EARS BID 3 Days #10 ml 04/17/23 [Rx] Fluticasone Nasal Agra [Flonase Nasal Agra] 2 spray EA NOSTRIL DAILY #30 ml 1 06/18/22 [Rx] Loratadine [Claritin] 5 mg PO DAILY 7 Days #7 tab 04/17/23 [Rx] Nystatin 100,000 Unit/ml Susp [Mycostatin Oral Susp] 500,000 unit PO QID 3 Days #60 ml 04/17/23 [Rx] predniSONE 10 mg PO DIRECTED #40 tab 04/17/23 [Rx] Follow up Appointment(s)/Referral(s): Christian Joe MD [STAFF PHYSICIAN] - 05/09/23 1:00 pm Iram Negron MD [STAFF PHYSICIAN] - As Needed Lino Snow DO [Primary Care Provider] - 1-2 days (Office will call with appointment time and date) Patient Instructions/Handouts: Community Acquired Pneumonia (DC) Discharge Disposition: HOME SELF-CARE
== END 2023-04-17 16:10 | disposition home or self-care (01) | DRG 166 ==
LOC: EC 19:07 → 6NMEDSUR 23:45 → OBSVTOIN 04-11 13:59
PROVIDERS: ADMIT Hospitalist; ATTEND Hospitalist
PROC: 0BBF8ZX Excision of Right Lower Lung Lobe, Via Natural or Artificial Opening Endoscopic, Diagnostic (ICD-10-PCS; principal; 2023-04-15 07:30)
PROC: 0BBD8ZX Excision of Right Middle Lung Lobe, Via Natural or Artificial Opening Endoscopic, Diagnostic (ICD-10-PCS; 2023-04-15 07:30)
PROC: 0B9D8ZX Drainage of Right Middle Lung Lobe, Via Natural or Artificial Opening Endoscopic, Diagnostic (ICD-10-PCS; 2023-04-15 07:30)
DX: J44.0 Chronic obstructive pulmonary disease with (acute) lower respiratory infection (principal); J18.9 Pneumonia, unspecified organism; B37.0 Candidal stomatitis; Z20.822 Contact with and (suspected) exposure to COVID-19; K31.84 Gastroparesis; Z68.38 Body mass index [BMI] 38.0-38.9, adult; E66.9 Obesity, unspecified; M79.7 Fibromyalgia; F17.210 Nicotine dependence, cigarettes, uncomplicated; K21.00 Gastro-esophageal reflux disease with esophagitis, without bleeding; H66.90 Otitis media, unspecified, unspecified ear; R79.89 Other specified abnormal findings of blood chemistry; E11.43 Type 2 diabetes mellitus with diabetic autonomic (poly)neuropathy; H66.92 Otitis media, unspecified, left ear; F41.0 Panic disorder [episodic paroxysmal anxiety]; K58.9 Irritable bowel syndrome, unspecified; G47.00 Insomnia, unspecified; J20.9 Acute bronchitis, unspecified; M06.9 Rheumatoid arthritis, unspecified; Z79.52 Long term (current) use of systemic steroids; Z79.899 Other long term (current) drug therapy; Z86.16 Personal history of COVID-19; Z71.6 Tobacco abuse counseling; K21.9 Gastro-esophageal reflux disease without esophagitis
CPT/HCPCS: 31623; 31624; 31628; 36415; 71045; 71046; 71275; 80048; 80053; 81001; 81025; 83880; 84145; 85025; 85379; 86738; 87040; 87070; 87102; 87116; 87205; 87206; 87449; 87496; 87498; 87502; 87529; 87634; 87635; 87636; 87798; 88104; 88108; 88305; 89050; 93005; 94640; 94760; 96361; 96365; 96366; 96375; 99285